=== PATIENT | female | born 1945 | race Caucasian/White ===

== ENCOUNTER 2018-01-14 10:19 | Observation (INO) ==
[2018-01-14] MEDS ORDERED: Sod Chloride 0.9% Inj 1,000 ML IV.CONT SCH (10:30)
--- NOTE | 2018-01-14 10:30 | ED ---
HPI General Chief complaint: Stroke Alert Stated complaint: Medical Time Seen by Provider: 01/14/18 10:25 Source: patient Mode of arrival: EMS Limitations: no limitations History of Present Illness HPI Narrative: h/o chronic afib, on coumadin, and per patient adn family her symptoms of left sided weakness with onset around 915am.... Patient was trying to get out of bed which time she almost fell down because her left lower extremity was so weak. She called for help and had her family come to the bedside. Patient is visiting from [place]. Onset (ago): hour(s) (1) Duration: improved Location: LUE and LLE Migration: none Severity: mild Relieving factors: none Exacerbating factors: none Associated symptoms: denies other symptoms Related Data Home Medications Medication Instructions Recorded Confirmed biotin DAILY 01/14/18 cyanocobalamin-cobamamide [B12] SUBLINGUAL DAILY 01/14/18 iron 2 mg/kg PO DAILY 01/14/18 01/14/18 levothyroxine 50 mcg PO DAILY 01/14/18 01/14/18 [id number] acid-lutein [Centrum PO BID 01/14/18 Silver] pantoprazole [Protonix] 40 mg PO DAILY 01/14/18 01/14/18 pravastatin 40 mg PO DAILY 01/14/18 01/14/18 Previous Rx's Medication Instructions Recorded amlodipine [Norvasc] 10 mg PO DAILY #30 tab 01/15/18 carvedilol [Coreg] 3.125 mg PO BID #60 tab 01/15/18 dabigatran etexilate [Pradaxa] 150 mg PO BID #60 cap 01/15/18 Allergies Allergy/AdvReac Type Severity Reaction Status Date / Time Penicillins Allergy Abdominal Verified 01/14/18 10:24 Pain Review of Systems ROS: all other systems reviewed are negative PMFSH History History Provided By: Patient Social History Social History Substance History: No History of Abuse Second Hand Smoke Exposure: Yes (Exposure as a child and during previous marriage.) Smoking Status: Never smoker Tobacco Type: Cigarettes How Often Do You Have a Drink Containing Alcohol: Never Recent Travel in [facility] within the Last 8 Weeks: No Recent Out of Country Travel within the Last 8 Weeks: No Exam Narrative Exam Narrative: GENERAL: Well-nourished, well-developed patient in no apparent distress. SKIN: Warm and dry. HEAD: Atraumatic. Normocephalic. EYES: Pupils equal and round. No scleral icterus. No injection or drainage. ENT: No nasal bleeding or discharge. Mucous membranes pink and moist. NECK: Trachea midline. No JVD. CARDIOVASCULAR: Regular rate and rhythm. no rubs or gallops RESPIRATORY: No accessory muscle use. Clear to auscultation. Breath sounds equal bilaterally. GASTROINTESTINAL: Abdomen soft, non-tender, nondistended. No rebound or guarding MUSCULOSKELETAL: Extremities without clubbing, cyanosis, or edema. No obvious deformities. NEUROLOGICAL: Awake and alert. No obvious cranial nerve deficits. Motor grossly within normal limits except for lle drift 4/5 initially (now resolved) ... all other (RUE/LUE/RLE/) extremities 5/5 Normal speech. PSYCHIATRIC: Appropriate mood and affect; insight and judgment normal. Course Initial Documented Vital Signs Temperature 98.7 F 01/14/18 10:25 Pulse Rate 43 L 01/14/18 10:25 Respiratory Rate 18 01/14/18 10:25 Blood Pressure 123/79 01/14/18 10:25 Pulse Oximetry 98 01/14/18 10:25 Last Documented Vital Signs Temperature 98.1 F 01/15/18 14:34 Pulse Rate 79 01/15/18 15:00 Respiratory Rate 17 01/15/18 14:34 Blood Pressure 146/108 H 01/15/18 14:34 Pulse Oximetry 97 01/15/18 08:00 Critical Care Time Critical Care Time: Yes Total Critical Care Time: 30 Attestation: Aggregate critical care time was 30 minutes. Time to perform other separately billable procedures was not included in the critical care time. My time did not include minutes spent treating any other patients simultaneously or on activities that did not directly contribute to the patient's treatment. The services I provided to this patient were to treat and/or prevent clinically significant deterioration. I provided critical care services requiring my management, as noted below: Chart data review, documentation time, medication orders and management, vital sign assessments/reviewing monitor data, ordering and reviewing lab tests, ordering and interpreting/reviewing x-rays and diagnostic studies, care of the patient and discussion of the patient with the admitting physicians. Medical Decision Making MDM Narrative Medical decision making narrative: Case discussed with Dr. Kim, who agreed with my decision not to provide any TPA secondary to quickly resolving symptoms as well as patient being anticoagulated on Coumadin No leukocytosis, no anemia, normal platelet count and no left shift INR is therapeutic at 2.2 Elect lites are all within normal limits with the exception of PSA glucose of 161 Troponin elevated at 0.21 findings d/w admitting physician Medical Screen Exam Complete: Yes Emergency Medical Condition: Yes Differential Diagnosis Differential Diagnosis: cva Medical Records Medical records reviewed: Yes I reviewed the patient's medical records. Lab Data Lab results reviewed: Yes I reviewed the patient's lab results. Result diagrams: 01/15/18 04:01 01/15/18 04:01 Lab Results 01/14/18 01/14/18 01/14/18 Range/Units 10:20 10:20 10:20 WBC 5.3 (4.0-11.0) th/mm3 RBC 4.73 (4.00-5.30) mil/mm3 Hgb 14.9 (11.6-15.3) gm/dL POC Hgb (Calc) (11.6-15.3) g/dL Hct 44.5 (35.0-46.0) % POC Hct (35-46.0) % MCV 94.1 (80.0-100.0) fL MCH 31.5 (27.0-34.0) pg MCHC 33.4 (32.0-36.0) % RDW 13.4 (11.6-17.2) % Plt Count 211 (150-450) th/mm3 MPV 8.3 (7.0-11.0) fL Neut % (Auto) 69.3 (16.0-70.0) % Lymph % (Auto) 21.6 (9.0-44.0) % Coffee % (Auto) 6.9 (0.0-8.0) % Eos % (Auto) 1.7 (0.0-4.0) % Baso % (Auto) 0.5 (0.0-2.0) % Neut # (Auto) 3.6 (1.8-7.7) th/mm3 Lymph # (Auto) 1.1 (1.0-4.8) th/mm3 Coffee # (Auto) 0.4 (0.0-0.9) th/mm3 Eos # (Auto) 0.1 (0.0-0.4) th/mm3 Baso # (Auto) 0.0 (0.0-0.2) th/mm3 WBC Differential . Differential Comment Auto diff final ESR (0-30) mm/hr PT 22.1 H (9.8-11.6) sec INR 2.2 Ratio APTT 39.4 H (24.3-30.1) sec POC Sodium (137-144) mmol/L Sodium 143 (136-145) meq/L POC Potassium (3.6-5.0) mmol/L Potassium 3.5 (3.5-5.1) meq/L POC Chloride (102-111) mmol/L Chloride 111 H (98-107) meq/L Carbon Dioxide 23.8 (21.0-32.0) meq/L Anion Gap 8 (5-15) meq/L POC BUN (5-21) mg/dL BUN 23 H (7-18) mg/dL Creatinine 0.85 (0.50-1.00) mg/dL POC Creatinine (0.6-1.3) mg/dL Estimated GFR 65 L (>89) mL/min POC Glucose (68-110) mg/dL Random Glucose 159 H (74-106) mg/dL Hemoglobin A1c (4.3-6.0) % Calcium 8.7 (8.5-10.1) mg/dL Total Bilirubin 1.0 (0.2-1.0) mg/dL AST 41 H (15-37) U/L ALT 30 (10-53) U/L Alkaline Phosphatase 106 (45-117) U/L Total Creatine Kinase 72 (26-192) U/L Troponin I 0.21 H (0.02-0.05) ng/mL Total Protein 7.0 (6.4-8.2) g/dL Albumin 3.3 L (3.4-5.0) g/dL Triglycerides (42-150) mg/dL Cholesterol (120-200) mg/dL LDL Cholesterol, Calc (0-99) mg/dL HDL Cholesterol (40.0-60.0) mg/dL Cholesterol/HDL Ratio Ratio Vitamin B12 (193-986) pg/mL TSH (0.358-3.740) uIU/mL Blood Type Blood Type Recheck Antibody Screen 01/14/18 01/14/18 01/14/18 Range/Units 10:20 11:17 16:38 WBC (4.0-11.0) th/mm3 RBC (4.00-5.30) mil/mm3 Hgb (11.6-15.3) gm/dL POC Hgb (Calc) 14.6 (11.6-15.3) g/dL Hct (35.0-46.0) % POC Hct 43.0 (35-46.0) % MCV (80.0-100.0) fL MCH (27.0-34.0) pg MCHC (32.0-36.0) % RDW (11.6-17.2) % Plt Count (150-450) th/mm3 MPV (7.0-11.0) fL Neut % (Auto) (16.0-70.0) % Lymph % (Auto) (9.0-44.0) % Coffee % (Auto) (0.0-8.0) % Eos % (Auto) (0.0-4.0) % Baso % (Auto) (0.0-2.0) % Neut # (Auto) (1.8-7.7) th/mm3 Lymph # (Auto) (1.0-4.8) th/mm3 Coffee # (Auto) (0.0-0.9) th/mm3 Eos # (Auto) (0.0-0.4) th/mm3 Baso # (Auto) (0.0-0.2) th/mm3 WBC Differential Differential Comment ESR (0-30) mm/hr PT (9.8-11.6) sec INR Ratio APTT (24.3-30.1) sec POC Sodium 143 (137-144) mmol/L Sodium (136-145) meq/L POC Potassium 3.2 L (3.6-5.0) mmol/L Potassium (3.5-5.1) meq/L POC Chloride 109 (102-111) mmol/L Chloride (98-107) meq/L Carbon Dioxide (21.0-32.0) meq/L Anion Gap (5-15) meq/L POC BUN 24 H (5-21) mg/dL BUN (7-18) mg/dL Creatinine (0.50-1.00) mg/dL POC Creatinine 0.6 (0.6-1.3) mg/dL Estimated GFR (>89) mL/min POC Glucose 161 H (68-110) mg/dL Random Glucose (74-106) mg/dL Hemoglobin A1c (4.3-6.0) % Calcium (8.5-10.1) mg/dL Total Bilirubin (0.2-1.0) mg/dL AST (15-37) U/L ALT (10-53) U/L Alkaline Phosphatase (45-117) U/L Total Creatine Kinase (26-192) U/L Troponin I 0.09 H D (0.02-0.05) ng/mL Total Protein (6.4-8.2) g/dL Albumin (3.4-5.0) g/dL Triglycerides (42-150) mg/dL Cholesterol (120-200) mg/dL LDL Cholesterol, Calc (0-99) mg/dL HDL Cholesterol (40.0-60.0) mg/dL Cholesterol/HDL Ratio Ratio Vitamin B12 (193-986) pg/mL TSH (0.358-3.740) uIU/mL Blood Type O Positive Blood Type Recheck Required Antibody Screen Negative 01/14/18 01/14/18 01/14/18 Range/Units 17:23 18:30 18:30 WBC (4.0-11.0) th/mm3 RBC (4.00-5.30) mil/mm3 Hgb (11.6-15.3) gm/dL POC Hgb (Calc) (11.6-15.3) g/dL Hct (35.0-46.0) % POC Hct (35-46.0) % MCV (80.0-100.0) fL MCH (27.0-34.0) pg MCHC (32.0-36.0) % RDW (11.6-17.2) % Plt Count (150-450) th/mm3 MPV (7.0-11.0) fL Neut % (Auto) (16.0-70.0) % Lymph % (Auto) (9.0-44.0) % Coffee % (Auto) (0.0-8.0) % Eos % (Auto) (0.0-4.0) % Baso % (Auto) (0.0-2.0) % Neut # (Auto) (1.8-7.7) th/mm3 Lymph # (Auto) (1.0-4.8) th/mm3 Coffee # (Auto) (0.0-0.9) th/mm3 Eos # (Auto) (0.0-0.4) th/mm3 Baso # (Auto) (0.0-0.2) th/mm3 WBC Differential Differential Comment ESR 5 (0-30) mm/hr PT (9.8-11.6) sec INR Ratio APTT (24.3-30.1) sec POC Sodium (137-144) mmol/L Sodium (136-145) meq/L POC Potassium (3.6-5.0) mmol/L Potassium (3.5-5.1) meq/L POC Chloride (102-111) mmol/L Chloride (98-107) meq/L Carbon Dioxide (21.0-32.0) meq/L Anion Gap (5-15) meq/L POC BUN (5-21) mg/dL BUN (7-18) mg/dL Creatinine (0.50-1.00) mg/dL POC Creatinine (0.6-1.3) mg/dL Estimated GFR (>89) mL/min POC Glucose 91 (68-110) mg/dL Random Glucose (74-106) mg/dL Hemoglobin A1c (4.3-6.0) % Calcium (8.5-10.1) mg/dL Total Bilirubin (0.2-1.0) mg/dL AST (15-37) U/L ALT (10-53) U/L Alkaline Phosphatase (45-117) U/L Total Creatine Kinase (26-192) U/L Troponin I 0.08 H (0.02-0.05) ng/mL Total Protein (6.4-8.2) g/dL Albumin (3.4-5.0) g/dL Triglycerides 86 (42-150) mg/dL Cholesterol 126 (120-200) mg/dL LDL Cholesterol, Calc 52 (0-99) mg/dL HDL Cholesterol 56.4 (40.0-60.0) mg/dL Cholesterol/HDL Ratio 2.23 Ratio Vitamin B12 1565 H (193-986) pg/mL TSH (0.358-3.740) uIU/mL Blood Type Blood Type Recheck Antibody Screen 01/14/18 01/15/18 01/15/18 Range/Units 23:24 04:01 04:01 WBC 6.5 (4.0-11.0) th/mm3 RBC 4.94 (4.00-5.30) mil/mm3 Hgb 15.4 H (11.6-15.3) gm/dL POC Hgb (Calc) (11.6-15.3) g/dL Hct 45.3 (35.0-46.0) % POC Hct (35-46.0) % MCV 91.6 (80.0-100.0) fL MCH 31.2 (27.0-34.0) pg MCHC 34.1 (32.0-36.0) % RDW 13.3 (11.6-17.2) % Plt Count 211 (150-450) th/mm3 MPV 8.3 (7.0-11.0) fL Neut % (Auto) 67.2 (16.0-70.0) % Lymph % (Auto) 23.9 (9.0-44.0) % Coffee % (Auto) 7.3 (0.0-8.0) % Eos % (Auto) 1.2 (0.0-4.0) % Baso % (Auto) 0.4 (0.0-2.0) % Neut # (Auto) 4.4 (1.8-7.7) th/mm3 Lymph # (Auto) 1.5 (1.0-4.8) th/mm3 Coffee # (Auto) 0.5 (0.0-0.9) th/mm3 Eos # (Auto) 0.1 (0.0-0.4) th/mm3 Baso # (Auto) 0.0 (0.0-0.2) th/mm3 WBC Differential . Differential Comment Auto diff final ESR (0-30) mm/hr PT (9.8-11.6) sec INR Ratio APTT (24.3-30.1) sec POC Sodium (137-144) mmol/L Sodium 146 H (136-145) meq/L POC Potassium (3.6-5.0) mmol/L Potassium 3.0 L (3.5-5.1) meq/L POC Chloride (102-111) mmol/L Chloride 113 H (98-107) meq/L Carbon Dioxide 24.0 (21.0-32.0) meq/L Anion Gap 9 (5-15) meq/L POC BUN (5-21) mg/dL BUN 15 (7-18) mg/dL Creatinine 0.57 (0.50-1.00) mg/dL POC Creatinine (0.6-1.3) mg/dL Estimated GFR Greater than 89 (>89) mL/min POC Glucose 87 (68-110) mg/dL Random Glucose 92 (74-106) mg/dL Hemoglobin A1c (4.3-6.0) % Calcium 8.7 (8.5-10.1) mg/dL Total Bilirubin (0.2-1.0) mg/dL AST (15-37) U/L ALT (10-53) U/L Alkaline Phosphatase (45-117) U/L Total Creatine Kinase (26-192) U/L Troponin I (0.02-0.05) ng/mL Total Protein (6.4-8.2) g/dL Albumin (3.4-5.0) g/dL Triglycerides (42-150) mg/dL Cholesterol (120-200) mg/dL LDL Cholesterol, Calc (0-99) mg/dL HDL Cholesterol (40.0-60.0) mg/dL Cholesterol/HDL Ratio Ratio Vitamin B12 (193-986) pg/mL TSH (0.358-3.740) uIU/mL Blood Type Blood Type Recheck Antibody Screen 01/15/18 01/15/18 01/15/18 Range/Units 04:01 08:42 09:44 WBC (4.0-11.0) th/mm3 RBC (4.00-5.30) mil/mm3 Hgb (11.6-15.3) gm/dL POC Hgb (Calc) (11.6-15.3) g/dL Hct (35.0-46.0) % POC Hct (35-46.0) % MCV (80.0-100.0) fL MCH (27.0-34.0) pg MCHC (32.0-36.0) % RDW (11.6-17.2) % Plt Count (150-450) th/mm3 MPV (7.0-11.0) fL Neut % (Auto) (16.0-70.0) % Lymph % (Auto) (9.0-44.0) % Coffee % (Auto) (0.0-8.0) % Eos % (Auto) (0.0-4.0) % Baso % (Auto) (0.0-2.0) % Neut # (Auto) (1.8-7.7) th/mm3 Lymph # (Auto) (1.0-4.8) th/mm3 Coffee # (Auto) (0.0-0.9) th/mm3 Eos # (Auto) (0.0-0.4) th/mm3 Baso # (Auto) (0.0-0.2) th/mm3 WBC Differential Differential Comment ESR (0-30) mm/hr PT (9.8-11.6) sec INR Ratio APTT (24.3-30.1) sec POC Sodium (137-144) mmol/L Sodium (136-145) meq/L POC Potassium (3.6-5.0) mmol/L Potassium (3.5-5.1) meq/L POC Chloride (102-111) mmol/L Chloride (98-107) meq/L Carbon Dioxide (21.0-32.0) meq/L Anion Gap (5-15) meq/L POC BUN (5-21) mg/dL BUN (7-18) mg/dL Creatinine (0.50-1.00) mg/dL POC Creatinine (0.6-1.3) mg/dL Estimated GFR (>89) mL/min POC Glucose 180 H (68-110) mg/dL Random Glucose (74-106) mg/dL Hemoglobin A1c 5.4 (4.3-6.0) % Calcium (8.5-10.1) mg/dL Total Bilirubin (0.2-1.0) mg/dL AST (15-37) U/L ALT (10-53) U/L Alkaline Phosphatase (45-117) U/L Total Creatine Kinase (26-192) U/L Troponin I (0.02-0.05) ng/mL Total Protein (6.4-8.2) g/dL Albumin (3.4-5.0) g/dL Triglycerides (42-150) mg/dL Cholesterol (120-200) mg/dL LDL Cholesterol, Calc (0-99) mg/dL HDL Cholesterol (40.0-60.0) mg/dL Cholesterol/HDL Ratio Ratio Vitamin B12 (193-986) pg/mL TSH 0.390 (0.358-3.740) uIU/mL Blood Type Blood Type Recheck Antibody Screen 01/15/18 Range/Units 09:44 WBC (4.0-11.0) th/mm3 RBC (4.00-5.30) mil/mm3 Hgb (11.6-15.3) gm/dL POC Hgb (Calc) (11.6-15.3) g/dL Hct (35.0-46.0) % POC Hct (35-46.0) % MCV (80.0-100.0) fL MCH (27.0-34.0) pg MCHC (32.0-36.0) % RDW (11.6-17.2) % Plt Count (150-450) th/mm3 MPV (7.0-11.0) fL Neut % (Auto) (16.0-70.0) % Lymph % (Auto) (9.0-44.0) % Coffee % (Auto) (0.0-8.0) % Eos % (Auto) (0.0-4.0) % Baso % (Auto) (0.0-2.0) % Neut # (Auto) (1.8-7.7) th/mm3 Lymph # (Auto) (1.0-4.8) th/mm3 Coffee # (Auto) (0.0-0.9) th/mm3 Eos # (Auto) (0.0-0.4) th/mm3 Baso # (Auto) (0.0-0.2) th/mm3 WBC Differential Differential Comment ESR (0-30) mm/hr PT 28.4 H (9.8-11.6) sec INR 2.8 Ratio APTT (24.3-30.1) sec POC Sodium (137-144) mmol/L Sodium (136-145) meq/L POC Potassium (3.6-5.0) mmol/L Potassium (3.5-5.1) meq/L POC Chloride (102-111) mmol/L Chloride (98-107) meq/L Carbon Dioxide (21.0-32.0) meq/L Anion Gap (5-15) meq/L POC BUN (5-21) mg/dL BUN (7-18) mg/dL Creatinine (0.50-1.00) mg/dL POC Creatinine (0.6-1.3) mg/dL Estimated GFR (>89) mL/min POC Glucose (68-110) mg/dL Random Glucose (74-106) mg/dL Hemoglobin A1c (4.3-6.0) % Calcium (8.5-10.1) mg/dL Total Bilirubin (0.2-1.0) mg/dL AST (15-37) U/L ALT (10-53) U/L Alkaline Phosphatase (45-117) U/L Total Creatine Kinase (26-192) U/L Troponin I (0.02-0.05) ng/mL Total Protein (6.4-8.2) g/dL Albumin (3.4-5.0) g/dL Triglycerides (42-150) mg/dL Cholesterol (120-200) mg/dL LDL Cholesterol, Calc (0-99) mg/dL HDL Cholesterol (40.0-60.0) mg/dL Cholesterol/HDL Ratio Ratio Vitamin B12 (193-986) pg/mL TSH (0.358-3.740) uIU/mL Blood Type Blood Type Recheck Antibody Screen Imaging Data Radiologist's impression: Carotid Doppler Study 01/14/18 00:00 CONCLUSION: 1. Right Internal Carotid Artery: Findings indicate <50% stenosis. 2. Left Internal Carotid Artery: Findings indicate <50% stenosis. Chest X-Ray 01/14/18 10:25 CONCLUSION: No acute cardiopulmonary disease. Head CT 01/14/18 10:25 CONCLUSION: 1. No acute intracranial findings. 2. Question right supraclinoid ICA aneurysm. CTA brain recommended which has been ordered Report was called by [Silas to Dr. Vera] at 1035 Head MRI 01/15/18 00:00 CONCLUSION: 1. Small foci of acute infarction at the posterior superior left parietal lobe. 2. Increased signal in the periventricular white matter likely from small vessel stomach change. 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 Periodic imaging follow-up suggested to document stability with repeat MRA in 6 months initially suggested Discharge Plan Discharge Disposition Patient Disposition: 30 Still Patient Discharge Condition Condition: Stable Discharge Order Discharge Orders: Discharge Order (Routine); Ordered 01/15/18 Ordered By: Fadi Garcia Cardiology Clear for Discharge (Routine); Ordered 01/15/18 Ordered By: Erick Mathews Discharge Details Diagnosis: Transient cerebral ischemia, Non-ST elevated myocardial infarction (non-STEMI) Physicians Team ED Provider: Alexander Vera Primary Care Provider: UNKNOWN, Attending Provider: Clifford Pierre Other Providers: Ben Kim Vincent G Status ED Status: Left Department Discharge Information Discharge Date/Time: 01/14/18 15:24
--- NOTE | 2018-01-14 10:39 | CT ---
EXAM DATE: 01/14/2018 10:32 AM EDT AGE/SEX: 72 years / Female INDICATIONS: Stroke alert. Left sided weakness. CLINICAL DATA: This is the patient's initial encounter. Patient reports that signs and symptoms have been present for 1 day and indicates a pain score of 0/10. MEDICAL/SURGICAL HISTORY: . Unable to obtain. . Unable to obtain. RADIATION DOSE: 31.25 CTDI (mGy) COMPARISON: No prior exams available for comparison. TECHNIQUE: CT of the head without contrast. Using automated exposure control and adjustment of the mA and/or kV according to patient size, radiation dose was kept as low as reasonably achievable to ob tain optimal diagnostic quality images. DICOM format image data is available electronically for revi ew and comparison. FINDINGS: There is dense calcification of and possibly dilatation of the skull base vessels on the right in the supraclinoid region. Please refer to report of CTA head for additional details. There is no evidence of intracranial hemorrhage or mass. There is nothing to specifically indicate ac [place] infarction. Ventricles are symmetric and normal. The extracranial structures are benign and intac t. CONCLUSION: 1. No acute intracranial findings. 2. Question right supraclinoid ICA aneurysm. CTA brain recommended which has been ordered Report was called by [Silas to Dr. Vera] at 1035 Electronically signed by: Dalton Rosen MD 01/14/2018 10:38 AM EDT
[2018-01-14 10:44] LABS: Baso % (Auto) 0.5 % (0.0-2.0); Eos # (Auto) 0.1 th/mm3 (0.0-0.4); Eos % (Auto) 1.7 % (0.0-4.0); Hematocrit 44.5 % (35.0-46.0); Hemoglobin 14.9 gm/dL (11.6-15.3); Lymph # (Auto) 1.1 th/mm3 (1.0-4.8); Lymph % (Auto) 21.6 % (9.0-44.0); Mean Corpuscular HGB Conc 33.4 % (32.0-36.0); Mean Corpuscular Hemoglobin 31.5 pg (27.0-34.0); Mean Corpuscular Volume 94.1 fL (80.0-100.0); Mean Platelet Volume 8.3 fL (7.0-11.0); Mono # (Auto) 0.4 th/mm3 (0.0-0.9); Mono % (Auto) 6.9 % (0.0-8.0); Neut # (Auto) 3.6 th/mm3 (1.8-7.7); Neut % (Auto) 69.3 % (16.0-70.0); Platelet Count 211 th/mm3 (150-450); Red Blood Count 4.73 mil/mm3 (4.00-5.30); Red Cell Distribution Width 13.4 % (11.6-17.2); White Blood Count 5.3 th/mm3 (4.0-11.0)
[2018-01-14 10:53] LABS: Activated Partial Thrombo Time 39.4 sec (24.3-30.1); INR 2.2 Ratio; Prothrombin Time 22.1 sec (9.8-11.6)
[2018-01-14 11:06] LABS: Alanine Aminotransferase 30 U/L (10-53); Albumin 3.3 g/dL (3.4-5.0); Alkaline Phosphatase 106 U/L (45-117); Anion Gap 8 meq/L (5-15); Blood Urea Nitrogen 23 mg/dL (7-18); Calcium 8.7 mg/dL (8.5-10.1); Carbon Dioxide 23.8 meq/L (21.0-32.0); Chloride 111 meq/L (98-107); Glomerular Filtration Rate 65 mL/min (>89); Glucose,Random 159 mg/dL (74-106); Sodium 143 meq/L (136-145); Troponin I 0.21 ng/mL (0.02-0.05)
[2018-01-14 11:07] LABS: Aspartate Aminotransferase 41 U/L (15-37); Creatine Kinase 72 U/L (26-192); Potassium 3.5 meq/L (3.5-5.1)
--- NOTE | 2018-01-14 11:08 | XR ---
EXAM DATE: 01/14/2018 11:06 AM EDT AGE/SEX: 72 years / Female INDICATIONS: Stroke Alert. CLINICAL DATA: This is the patient's initial encounter. Patient reports that signs and symptoms have been present for 1 day and indicates a pain score of 0/10. MEDICAL/SURGICAL HISTORY: Non-responsive. None. COMPARISON: No prior exams available for comparison. FINDINGS: The lungs are clear without infiltrate, nodule, or mass. There is no appreciable pleural effusion for technique. Heart and mediastinum are unremarkable. CONCLUSION: No acute cardiopulmonary disease. Electronically signed by: Maritza Scott MD 01/14/2018 11:07 AM EDT
[2018-01-14] MEDS ORDERED: Dextrose 50% in Water 50 ML Vial IV.PUSH PRN (12:48)
[2018-01-14] MEDS ORDERED: Aspirin 325 MG Tablet PO SCH (13:00)
--- NOTE | 2018-01-14 14:39 | US ---
EXAM DATE: 01/14/2018 1:52 PM EDT AGE/SEX: 72 years / Female INDICATIONS: Transient ischemic attack. CLINICAL DATA: This is the patient's initial encounter. Patient reports that signs and symptoms have been present for 1 day and indicates a pain score of 0/10. MEDICAL/SURGICAL HISTORY: Hypertension. Atrial fibrillation. Carpal tunnel syndrome. Gastric b ypass. Bilateral knee replacement. COMPARISON: No prior exams available for comparison. VELOCITY PARAMETERS: ICA/CCA Ratio: Right 1.8 , Left 1.0 ICA: Right 78.9 cm/sec, Left 59.2 cm/sec CCA: Right 44.2 cm/sec, Left 60.3 cm/sec ECA: Right 50.8 cm/sec, Left 48.2 cm/sec Vertebral: Right 41.8 cm/sec antegrade, Left 38.4 cm/sec antegrade FINDINGS: Right Carotid: There is mild atherosclerotic plaque within the common carotid artery and moderate ca lcified and noncalcified plaque in the right bulb.The waveforms are within normal limits. Left Carotid: There is mild atherosclerotic disease in the common carotid artery and moderate calcif ied plaque in the carotid bulb. The waveforms are within normal limits. Other: None. CONCLUSION: 1. Right Internal Carotid Artery: Findings indicate <50% stenosis. 2. Left Internal Carotid Artery: Findings indicate <50% stenosis. Electronically signed by: Dalton Schroeder MD 01/14/2018 2:38 PM EDT
--- NOTE | 2018-01-14 16:02 | P.CONNEU ---
History of Present Illness Service: Neurology Primary Care Provider: UNKNOWN Chief Complaint: TIA History of Present Illness: 72-year-old female admitted for possible TIA. She is here visiting from [place] is on Coumadin. After eating breakfast this morning she stood up felt somewhat weak her daughter noticed her to look somewhat disoriented with speaking to her with the patient would not speak much back and states she had to hold her because she felt that she was getting go down. Daughter states that EVAC found her they felt that she had a left pronator drift. Her symptoms have resolved. Denies any previous history of TIA or stroke. Feels well at present denies any head or neck trauma. CT brain scan did not show any acute lesion. Noted be quite hypertensive in the ER systolic greater than 180s. Review of Systems All other systems reviewed negative except as [facility] - History History Provided By: Patient - Medical History Medical History: Medical History (Last Reviewed 01/14/18 @ 15:43 by Isabel Gayle) Hypertension (Acute) Afib (Acute) - Surgical History Surgical History: Surgical History (Last Reviewed 01/14/18 @ 15:43 by Isabel Gayle) H/O gastric bypass History of bilateral knee replacement History of carpal tunnel release of both wrists - Family History Family History: Family History (Last Updated 01/14/18 @ 12:36 by Karol Lynn MD, R1) Other Heart disease Melanoma - Tobacco History Second Hand Smoke Exposure: No Tobacco Use In Past 30 Days: No Smoking Status: Never smoker Tobacco Type: Cigarettes - Alcohol History How Often Do You Have a Drink Containing Alcohol: Never - Substance Use History Substance History: No History of Abuse - Travel History Recent Travel in the [place] Within the Last 8 Weeks: No Recent Travel Out of the Country Within the Last 8 Weeks: No - Immunization History Tetanus Immunization: <5 Years Hx Influenza Vaccine This Season: No Medications and Allergies Active Medications: Active Medications Aspirin (Aspirin) 325 mg PO DAILY CHELSIE Dextrose (D50w Vial) 50 ml IV.PUSH UNSCH PRN PRN Reason: per Hypoglycemic Protocol Enalaprilat (Vasotec Inj) 1.25 mg IV.PUSH Q6H PRN PRN Reason: SEE LABEL COMMENTS Glucagon (Glucagon Inj) 1 mg OTHER UNSCH PRN PRN Reason: per Hypoglycemic Protocol Sodium Chloride (Ns Inj) 1,000 mls @ 70 mls/hr IV.CONT .[id number] CHELSIE Stop: 01/15/18 00:47 Last Admin: 01/14/18 10:56 Dose: 70 mls/hr Sodium Chloride (Ns Inj) 1,000 mls @ 70 mls/hr IV.CONT .[id number] [facility] Sodium Chloride (Ns Flush) 2 ml IV.FLUSH PRN PRN PRN Reason: FLUSH AFTER USING IV ACCESS Allergies Allergy/AdvReac Type Severity Reaction Status Date / Time Penicillins Allergy Abdominal Verified 01/14/18 10:24 Pain Home Medications Medication Instructions Recorded Confirmed Type biotin 01/14/18 History carvedilol 12.5 mg PO BID 01/14/18 01/14/18 History cyanocobalamin-cobamamide [B12] 01/14/18 History iron 2 mg/kg PO DAILY 01/14/18 01/14/18 History levothyroxine 50 mcg PO DAILY 01/14/18 01/14/18 History uo-[id number] acid-lutein [Centrum 01/14/18 History Silver] pantoprazole [Protonix] 40 mg PO DAILY 01/14/18 01/14/18 History pravastatin 40 mg PO DAILY 01/14/18 01/14/18 History warfarin 5 mg PO DAILY 01/14/18 01/14/18 History Exam Vital signs: Vital Signs 01/14/18 10:25 01/14/18 10:38 01/14/18 10:39 Temperature 98.7 F Pulse Rate 43 L Respiratory Rate 18 Blood Pressure 123/79 Pulse Oximetry 98 100 100 01/14/18 10:58 01/14/18 13:00 01/14/18 13:04 Temperature 98.6 F 98.6 F Pulse Rate 69 68 Respiratory Rate 18 18 Blood Pressure 180/89 H 202/104 H Pulse Oximetry 96 100 Intake & Output 01/13/18 01/14/18 01/14/18 18:59 06:59 18:59 Weight 71.8 kg Narrative: Pleasant 72-year-old female awake alert oriented 3 no aphasia able to repeat name, follow midline motor crossing request. Visual rahman full no facial asymmetry tongue midline no pronator drift. Reduce pinprick stocking distribution right greater than left. Right foot hammertoe formation, secondary fall risk plantarflexion no clonus elicited gait not assessed secondary potential fall risk - Constitutional no acute distress - Routine HEENT Exam Head: Present: normocephalic Eye: Present: EOMI Results - Labs CBC & Chem 7: 01/14/18 10:20 01/14/18 10:20 Labs: Laboratory Results - last 24 hr 01/14/18 01/14/18 01/14/18 10:20 10:20 10:20 WBC 5.3 RBC 4.73 Hgb 14.9 POC Hgb (Calc) Hct 44.5 POC Hct MCV 94.1 MCH 31.5 MCHC 33.4 RDW 13.4 Plt Count 211 MPV 8.3 Neut % (Auto) 69.3 Lymph % (Auto) 21.6 Dickey % (Auto) 6.9 Eos % (Auto) 1.7 Baso % (Auto) 0.5 Neut # (Auto) 3.6 Lymph # (Auto) 1.1 Dickey # (Auto) 0.4 Eos # (Auto) 0.1 Baso # (Auto) 0.0 WBC Differential . Differential Comment Auto diff final PT 22.1 H INR 2.2 APTT 39.4 H POC Sodium Sodium 143 POC Potassium Potassium 3.5 POC Chloride Chloride 111 H Carbon Dioxide 23.8 Anion Gap 8 POC BUN BUN 23 H Creatinine 0.85 POC Creatinine Estimated GFR 65 L POC Glucose Random Glucose 159 H Calcium 8.7 Total Bilirubin 1.0 AST 41 H ALT 30 Alkaline Phosphatase 106 Total Creatine Kinase 72 Troponin I 0.21 H Total Protein 7.0 Albumin 3.3 L Blood Type Blood Type Recheck Antibody Screen 01/14/18 01/14/18 10:20 11:17 WBC RBC Hgb POC Hgb (Calc) 14.6 Hct POC Hct 43.0 MCV MCH MCHC RDW Plt Count MPV Neut % (Auto) Lymph % (Auto) Dickey % (Auto) Eos % (Auto) Baso % (Auto) Neut # (Auto) Lymph # (Auto) Dickey # (Auto) Eos # (Auto) Baso # (Auto) WBC Differential Differential Comment PT INR APTT POC Sodium 143 Sodium POC Potassium 3.2 L Potassium POC Chloride 109 Chloride Carbon Dioxide Anion Gap POC BUN 24 H BUN Creatinine POC Creatinine 0.6 Estimated GFR POC Glucose 161 H Random Glucose Calcium Total Bilirubin AST ALT Alkaline Phosphatase Total Creatine Kinase Troponin I Total Protein Albumin Blood Type O Positive Blood Type Recheck Required Antibody Screen Negative - Imaging Impressions Carotid Doppler Study 01/14/18 00:00 CONCLUSION: 1. Right Internal Carotid Artery: Findings indicate <50% stenosis. 2. Left Internal Carotid Artery: Findings indicate <50% stenosis. Chest X-Ray 01/14/18 10:25 CONCLUSION: No acute cardiopulmonary disease. Head CT 01/14/18 10:25 CONCLUSION: 1. No acute intracranial findings. 2. Question right supraclinoid ICA aneurysm. CTA brain recommended which has been ordered Report was called by [Silas to Dr. Vera] at 1035 Review/Management - Diagnosis (1) Transient cerebral ischemia Code(s): G45.9 - Transient cerebral ischemic attack, unspecified Status: Acute Current Visit: Yes (2) Non-ST elevated myocardial infarction (non-STEMI) Code(s): I21.4 - Non-ST elevation (NSTEMI) myocardial infarction Status: Acute Current Visit: Yes (3) Hypertension Code(s): I10 - Essential (primary) hypertension Status: Acute Current Visit : Yes (4) Afib Code(s): I48.91 - Unspecified atrial fibrillation Status: Acute Current Visit: Yes - Review/Management Plan: Patient doing well at present neuro exam nonfocal with exception of 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 Rule out seizure TIA is a possibility as well that her INR was therapeutic at 2.2 Recommendations EEG Follow-up MRI MRA of the brain Target INR 2.5 Follow fasting lipids PT evaluation (1) Transient cerebral ischemia Qualifiers: Transient cerebral ischemia type: unspecified Qualified Code(s): G45.9 - Transient cerebral ischemic attack, unspecified
[2018-01-14] MEDS ORDERED: Aspirin 325 MG Tablet PO ONE (17:11)
--- NOTE | 2018-01-14 17:13 | P.HPFP ---
History of Present Illness Primary Care Physician: UNKNOWN Chief Complaint: TIA History of Present Illness: 72-year-old female with history of A. fib, hypertension and hypothyroidism presented to the emergency room following an episode of dizziness and weakness. Patient is accompanied by her daughters who assist in providing history. Patient was in her normal state of health and her family were visiting from [place] and on the morning of admission suddenly felt lightheaded/dizzy, and upon trying to stand up felt her left leg gave out. Her daughter was standing nearby who grabbed her to keep her from falling, and the daughter reports that she had a blank/day used look in her eyes and was minimally responsive for the next 5 or so minutes. EMS was called at that time, and on the ride here in the family noted that she was unable to lift her left arm and left leg when instructed to do so. She denies any headache, blurry vision. She states that she is never had anything like this happen before. Patient is on warfarin for her A. fib, and 1 year ago her traffic workforce representative wanted to place a watchman device but was unable to do so due to a thrombus in the left atrial appendage. Denies any history of stroke. - Diagnosis (1) Transient cerebral ischemia (2) Elevated troponin (3) Afib (4) Hypertension (5) Nutrition, metabolism, and development symptoms Review of Systems Constitutional: Denies chills, Denies fever(s) Eyes: Denies blind spots, Denies blurry vision Ears, Nose, Mouth, and Throat: Reports abnormal hearing (Currently has decreased hearing in her left ear.), Denies post nasal drip, Denies sore throat Cardiovascular: Denies chest pain, Denies radiating jaw, neck or arm pain, Denies shortness of breath Respiratory: Denies cough, Denies wheezing Gastrointestinal: Denies abdominal pain, Denies black, tarry stools, Denies bright, red blood in stools, Denies change in bowel habits, Denies nausea, Denies vomiting Genitourinary: Denies blood in urine, Denies urinary urgency Skin/Breast: Denies new lesions, Denies wounds Neurologic: Denies confusion, Denies frequent falls PMFSH - History History Provided By: Patient - Medical History Medical History: Medical History (Last Updated 01/14/18 @ 16:29 by Fadi Garica MD, R2) Hypertension (Acute) Afib (Acute) Hypothyroidism - Surgical History Surgical History: Surgical History (Last Reviewed 01/14/18 @ 16:29 by Fadi Garcia MD, R2) H/O gastric bypass History of bilateral knee replacement History of carpal tunnel release of both wrists - Family History Family History: Family History (Last Reviewed 01/14/18 @ 16:29 by Fadi Garcia MD, R2) Other Heart disease Melanoma - Tobacco History Second Hand Smoke Exposure: No Tobacco Use In Past 30 Days: No Smoking Status: Never smoker Tobacco Type: Cigarettes - Alcohol History How Often Do You Have a Drink Containing Alcohol: Never - Substance Use History Substance History: No History of Abuse - Travel History Recent Travel in the [place] Within the Last 8 Weeks: No Recent Travel Out of the Country Within the Last 8 Weeks: No - Immunization History Tetanus Immunization: <5 Years Hx Influenza Vaccine This Season: No Medications and Allergies Active Medications: Active Medications Aspirin (Aspirin) 325 mg PO DAILY CHELSIE Dextrose (D50w Vial) 50 ml IV.PUSH UNSCH PRN PRN Reason: per Hypoglycemic Protocol Enalaprilat (Vasotec Inj) 1.25 mg IV.PUSH Q6H PRN PRN Reason: SEE LABEL COMMENTS Glucagon (Glucagon Inj) 1 mg OTHER UNSCH PRN PRN Reason: per Hypoglycemic Protocol Sodium Chloride (Ns Inj) 1,000 mls @ 70 mls/hr IV.CONT .[id number] CHELSIE Stop: 01/15/18 00:47 Last Admin: 01/14/18 10:56 Dose: 70 mls/hr Sodium Chloride (Ns Inj) 1,000 mls @ 70 mls/hr IV.CONT .[id number] [facility] Sodium Chloride (Ns Flush) 2 ml IV.FLUSH PRN PRN PRN Reason: FLUSH AFTER USING IV ACCESS Allergies Allergy/AdvReac Type Severity Reaction Status Date / Time Penicillins Allergy Abdominal Verified 01/14/18 10:24 Pain Home Medications Medication Instructions Recorded Confirmed Type biotin 01/14/18 History carvedilol 12.5 mg PO BID 01/14/18 01/14/18 History cyanocobalamin-cobamamide [B12] 01/14/18 History iron 2 mg/kg PO DAILY 01/14/18 01/14/18 History levothyroxine 50 mcg PO DAILY 01/14/18 01/14/18 History lc-uqm-amngq acid-lutein [Centrum 01/14/18 History Silver] pantoprazole [Protonix] 40 mg PO DAILY 01/14/18 01/14/18 History pravastatin 40 mg PO DAILY 01/14/18 01/14/18 History warfarin 5 mg PO DAILY 01/14/18 01/14/18 History Exam Vital signs: Vital Signs 01/14/18 10:25 01/14/18 10:38 01/14/18 10:39 Temperature 98.7 F Pulse Rate 43 L Respiratory Rate 18 Blood Pressure 123/79 Pulse Oximetry 98 100 100 01/14/18 10:58 01/14/18 13:00 01/14/18 13:04 Temperature 98.6 F 98.6 F Pulse Rate 69 68 Respiratory Rate 18 18 Blood Pressure 180/89 H 202/104 H Pulse Oximetry 96 100 Intake & Output 01/13/18 01/14/18 01/14/18 18:59 06:59 18:59 Weight 71.8 kg Narrative: GENERAL: Well-developed well-nourished white female lying in bed with head flat in no acute distress and answering questions appropriately. SKIN: Warm and dry. HEAD: Atraumatic. Normocephalic. EYES: Pupils equal and round. No scleral icterus. No injection or drainage. ENT: No nasal bleeding or discharge. Mucous membranes pink and moist. NECK: Trachea midline. No JVD. CARDIOVASCULAR: Irregular rate and rhythm. No murmurs appreciated RESPIRATORY: No accessory muscle use. Clear to auscultation. Breath sounds equal bilaterally. GASTROINTESTINAL: Abdomen soft, non-tender, nondistended. Hepatic and splenic margins not palpable. MUSCULOSKELETAL: Extremities without clubbing, cyanosis, or edema. No obvious deformities. NEUROLOGICAL: Awake and alert. Cranial nerves II through XII intact. Finger to nose intact, heel to bledsoe intact. Motor grossly within normal limits. Five out of 5 muscle strength in the arms and legs. Sensation intact and equal bilaterally. Normal speech. PSYCHIATRIC: Appropriate mood and affect; insight and judgment normal. Results - Labs Result diagrams: 01/14/18 10:20 01/14/18 10:20 Abnormal lab results 01/14/18 01/14/18 01/14/18 Range/Units 10:20 10:20 10:20 PT 22.1 H (9.8-11.6) sec APTT 39.4 H (24.3-30.1) sec POC Potassium 3.2 L (3.6-5.0) mmol/L Chloride 111 H (98-107) meq/L POC BUN 24 H (5-21) mg/dL BUN 23 H (7-18) mg/dL Estimated GFR 65 L (>89) mL/min POC Glucose 161 H (68-110) mg/dL Random Glucose 159 H (74-106) mg/dL AST 41 H (15-37) U/L Troponin I 0.21 H (0.02-0.05) ng/mL Albumin 3.3 L (3.4-5.0) g/dL Short CBC 01/14/18 Range/Units 10:20 WBC 5.3 (4.0-11.0) th/mm3 Hgb 14.9 (11.6-15.3) gm/dL Hct 44.5 (35.0-46.0) % Plt Count 211 (150-450) th/mm3 BMP 01/14/18 10:20 Sodium 143 Potassium 3.5 Chloride 111 H Carbon Dioxide 23.8 BUN 23 H Creatinine 0.85 Calcium 8.7 Cardiac Enzymes 01/14/18 Range/Units 10:20 Total Creatine Kinase 72 (26-192) U/L Troponin I 0.21 H (0.02-0.05) ng/mL Liver Function 01/14/18 Range/Units 10:20 Total Bilirubin 1.0 (0.2-1.0) mg/dL AST 41 H (15-37) U/L ALT 30 (10-53) U/L Alkaline Phosphatase 106 (45-117) U/L Albumin 3.3 L (3.4-5.0) g/dL - Imaging Impressions Carotid Doppler Study 01/14/18 00:00 CONCLUSION: 1. Right Internal Carotid Artery: Findings indicate <50% stenosis. 2. Left Internal Carotid Artery: Findings indicate <50% stenosis. Chest X-Ray 01/14/18 10:25 CONCLUSION: No acute cardiopulmonary disease. Head CT 01/14/18 10:25 CONCLUSION: 1. No acute intracranial findings. 2. Question right supraclinoid ICA aneurysm. CTA brain recommended which has been ordered Report was called by [Silas to Dr. Vera] at 1035 Caprini VTE Risk Assessment Caprini VTE Risk Assessment: Moderate/High Risk (score >= 2) Caprini Risk Assessment Model: Point Value = 1 Point Value = 2 Point Value = 3 Point Value = 5 Age 41-60 Minor surgery BMI > 25 kg/m2 Swollen legs Varicose veins or History of unexplained or recurrent spontaneous Oral contraceptives or hormone replacement Sepsis (< 1 month) Serious lung disease, including pneumonia (< 1 month) Abnormal pulmonary function Acute myocardial infarction Congestive heart failure (< 1 month) History of inflammatory bowel disease Medical patient at bed rest Age 61-74 Arthroscopic surgery Major open surgery (> 45 min) Laparoscopic surgery (> 45 min) Malignancy Confined to bed (> 72 hours) Immobilizing plaster cast Central venous access Age >= 75 History of VTE Family history of VTE Factor V Leiden Prothrombin [id number] Lupus anticoagulant Anticardiolipin antibodies Elevated serum homocysteine Heparin-induced thrombocytopenia Other congenital or acquired thrombophilia Stroke (< 1 month) Elective arthroplasty Hip, pelvis, or leg fracture Acute spinal cord injury (< 1 month) Prophylaxis Regimen: Total Risk Factor Score Risk Level Prophylaxis Regimen 0-1 Low Early ambulation 2 Moderate Order ONE of the following: *Sequential Compression Device (SCD) *Heparin 5000 units SQ BID 3-4 Higher Order ONE of the following medications: *Heparin 5000 units SQ TID *Enoxaparin/Lovenox 40 mg SQ daily (WT < 150 kg, CrCl > 30 mL/min) *Enoxaparin/Lovenox 30 mg SQ daily (WT < 150 kg, CrCl > 10-29 mL/min) *Enoxaparin/Lovenox 30 mg SQ BID (WT < 150 kg, CrCl > 30 mL/min) AND/OR *Sequential Compression Device (SCD) 5 or more Highest Order ONE of the following medications: *Heparin 5000 units SQ TID (Preferred with Epidurals) *Enoxaparin/Lovenox 40 mg SQ daily (WT < 150 kg, CrCl > 30 mL/min) *Enoxaparin/Lovenox 30 mg SQ daily (WT < 150 kg, CrCl > 10-29 mL/min) *Enoxaparin/Lovenox 30 mg SQ BID (WT < 150 kg, CrCl > 30 mL/min) AND *Sequential Compression Device (SCD) Assessment and Plan - Assessment (1) Transient cerebral ischemia Code(s): G45.9 - Transient cerebral ischemic attack, unspecified Status: Acute Plan: On the day of admission had left-sided weakness that improved to baseline by the time patient was evaluated in the emergency room No history of stroke or TIA Patient does have A. fib with a known clot in the left atrial appendage. On warfarin with an INR of 2.2 CT head on admission showed no acute intracranial findings, did show questionable right supraclinoid ICA aneurysm EKG no ST changes Speech therapy consultedpassed swallow study Gave aspirin 325 mg p.o. once Continuous telemetry Echocardiogram pending CTA, MR brain pending Carotid ultrasound pending Neurology consulted Lipid panel, hemoglobin A1c in a.m. labs PT/OT (2) Elevated troponin Code(s): R74.8 - Abnormal levels of other serum enzymes Status: Acute Plan: Patient noted to have elevated troponin 0.21 on admission EKG with no ST elevations Will trend troponins and EKG for ACS rule out (3) Afib Code(s): I48.91 - Unspecified atrial fibrillation Status: Acute Plan: Known history of A. fib Well-controlled on Coreg 12.5 mg p.o. twice daily On warfarin 5 mg p.o. daily, INR 2.2 on admission On telemetry (4) Hypertension Code(s): I10 - Essential (primary) hypertension Status: Acute Plan: Known history of hypertension, treated only with carvedilol Pressure elevated at 202/104 on admission Ordering Vasotec IV as needed for systolic blood pressure over 180, diastolic blood pressure over 110 (5) Nutrition, metabolism, and development symptoms Code(s): R63.8 - Other symptoms and signs concerning food and fluid intake Status: Acute Plan: Passed swallow study, cardiac diet Normal saline IV fluids at 70 mL/h Replace electrolytes as needed Warfarin 5 mg daily - Assessment and Plan 72-year-old female with history of A. fib, hypertension hypothyroidism presented after a episode of left-sided weakness. Symptoms resolved on admission. Imaging to this point has been negative. Was noted to have elevated troponin of 0.21 on admission. Will admit to observation for TIA workup, ACS rule out. Neurology consulted. Disposition: Likely 1-2 days. Anticipate being discharged home pending PT/OT evaluation (1) Transient cerebral ischemia Qualifiers: Transient cerebral ischemia type: unspecified Qualified Code(s): G45.9 - Transient cerebral ischemic attack, unspecified
[2018-01-14] MEDS: Sod Chloride 0.9% Inj 1,000 ML IV.CONT SCH ×2 (17:26→20:44)
--- NOTE | 2018-01-14 18:47 | P.PNFP ---
Subjective Interval history: Attending note: Very pleasant 72-year-old woman visiting from [place] with daughter present relates episode this morning feeling suddenly lightheaded and dizzy and discovering that her left leg seem to give out of when trying to stand. Initially patient's daughter observed her to have a "blank stare" and although she appeared conscious not responding to conversation. Episode lasted several minutes, she was observed to be intermittently diaphoretic did not experience a headache. According to documentation there was an additional time when she was unable to move her left arm and left leg while in transit to the emergency room. Patient has been on Coumadin for atrial fibrillation she reports that recently she has had to go more frequently for INR is. Currently taking 5 mg daily had been on aspirin however after a gastric bypass and Mayra-en -Y she was experiencing ulcers and the aspirin was discontinued. Is never had a TIA or stroke. Patient and her daughter have a time share here in [place] and they are on vacation. Results - Labs Result diagrams: 01/14/18 10:20 01/14/18 10:20 Abnormal lab results 01/14/18 01/14/18 01/14/18 Range/Units 10:20 10:20 10:20 PT 22.1 H (9.8-11.6) sec APTT 39.4 H (24.3-30.1) sec POC Potassium 3.2 L (3.6-5.0) mmol/L Chloride 111 H (98-107) meq/L POC BUN 24 H (5-21) mg/dL BUN 23 H (7-18) mg/dL Estimated GFR 65 L (>89) mL/min POC Glucose 161 H (68-110) mg/dL Random Glucose 159 H (74-106) mg/dL AST 41 H (15-37) U/L Troponin I 0.21 H (0.02-0.05) ng/mL Albumin 3.3 L (3.4-5.0) g/dL 01/14/18 Range/Units 16:38 PT (9.8-11.6) sec APTT (24.3-30.1) sec POC Potassium (3.6-5.0) mmol/L Chloride (98-107) meq/L POC BUN (5-21) mg/dL BUN (7-18) mg/dL Estimated GFR (>89) mL/min POC Glucose (68-110) mg/dL Random Glucose (74-106) mg/dL AST (15-37) U/L Troponin I 0.09 H D (0.02-0.05) ng/mL Albumin (3.4-5.0) g/dL Short CBC 01/14/18 Range/Units 10:20 WBC 5.3 (4.0-11.0) th/mm3 Hgb 14.9 (11.6-15.3) gm/dL Hct 44.5 (35.0-46.0) % Plt Count 211 (150-450) th/mm3 BMP 01/14/18 10:20 Sodium 143 Potassium 3.5 Chloride 111 H Carbon Dioxide 23.8 BUN 23 H Creatinine 0.85 Calcium 8.7 Cardiac Enzymes 01/14/18 01/14/18 Range/Units 10:20 16:38 Total Creatine Kinase 72 (26-192) U/L Troponin I 0.21 H 0.09 H D (0.02-0.05) ng/mL Liver Function 01/14/18 Range/Units 10:20 Total Bilirubin 1.0 (0.2-1.0) mg/dL AST 41 H (15-37) U/L ALT 30 (10-53) U/L Alkaline Phosphatase 106 (45-117) U/L Albumin 3.3 L (3.4-5.0) g/dL - Imaging Impressions Carotid Doppler Study 01/14/18 00:00 CONCLUSION: 1. Right Internal Carotid Artery: Findings indicate <50% stenosis. 2. Left Internal Carotid Artery: Findings indicate <50% stenosis. Chest X-Ray 01/14/18 10:25 CONCLUSION: No acute cardiopulmonary disease. Head CT 01/14/18 10:25 CONCLUSION: 1. No acute intracranial findings. 2. Question right supraclinoid ICA aneurysm. CTA brain recommended which has been ordered Report was called by [Silas to Dr. Vera] at 1035 Physical Exam Vital signs: Vital Signs 01/14/18 10:25 01/14/18 10:38 01/14/18 10:39 Temperature 98.7 F Pulse Rate 43 L Respiratory Rate 18 Blood Pressure 123/79 Pulse Oximetry 98 100 100 01/14/18 10:58 01/14/18 13:00 01/14/18 13:04 Temperature 98.6 F 98.6 F Pulse Rate 69 68 Respiratory Rate 18 18 Blood Pressure 180/89 H 202/104 H Pulse Oximetry 96 100 01/14/18 15:00 01/14/18 16:00 01/14/18 17:00 Temperature 98 F 98.1 F Pulse Rate 59 L 80 68 Respiratory Rate 16 17 Blood Pressure 189/88 H 216/127 H Pulse Oximetry 96 97 Intake & Output 01/13/18 01/14/18 01/14/18 18:59 06:59 18:59 Weight 71.8 kg Narrative: Vital signs blood pressure has been quite labile 123/79-200 16/127. Pulse 80/ min respirations 18 temperature afebrile. General appearance older woman who is very pleasant in conversation, alert and oriented, no acute distress, reports no current neurologic symptoms. HEENT: Nonlocalizing. Neck: No bruits. Lungs: Clear to auscultation. Cardiac: S1-S2, no S3 or murmurs evident. Abdomen: Abdomen is soft, no organomegaly, no tenderness or masses. Extremities: feet are warm and dry, intact pedal pulses, superficial varicosities. Neurologic: Grossly nonlocalizing. Refer to resident history and physical for complete discussion of physical exam. Assessment and Plan - Assessment (1) Transient cerebral ischemia Code(s): G45.9 - Transient cerebral ischemic attack, unspecified Status: Acute Plan: On the day of admission had left-sided weakness that improved to baseline by the time patient was evaluated in the emergency room No history of stroke or TIA Patient does have A. fib with a known clot in the left atrial appendage. On warfarin with an INR of 2.2 CT head on admission showed no acute intracranial findings, did show questionable right supraclinoid ICA aneurysm EKG no ST changes Speech therapy consultedpassed swallow study Gave aspirin 325 mg p.o. once Continuous telemetry Echocardiogram pending CTA, MR brain pending Carotid ultrasound pending Neurology consulted Lipid panel, hemoglobin A1c in a.m. labs PT/OT (2) Elevated troponin Code(s): R74.8 - Abnormal levels of other serum enzymes Status: Acute Plan: Patient noted to have elevated troponin 0.21 on admission EKG with no ST elevations Will trend troponins and EKG for ACS rule out (3) Afib Code(s): I48.91 - Unspecified atrial fibrillation Status: Acute Plan: Known history of A. fib Well-controlled on Coreg 12.5 mg p.o. twice daily On warfarin 5 mg p.o. daily, INR 2.2 on admission On telemetry (4) Hypertension Code(s): I10 - Essential (primary) hypertension Status: Acute Plan: Known history of hypertension, treated only with carvedilol Pressure elevated at 202/104 on admission Ordering Vasotec IV as needed for systolic blood pressure over 180, diastolic blood pressure over 110 (5) Nutrition, metabolism, and development symptoms Code(s): R63.8 - Other symptoms and signs concerning food and fluid intake Status: Acute Plan: Passed swallow study, cardiac diet Normal saline IV fluids at 70 mL/h Replace electrolytes as needed Warfarin 5 mg daily - Assessment and Plan 72-year-old female with history of A. fib, hypertension hypothyroidism presented after a episode of left-sided weakness. Symptoms resolved on admission. Imaging to this point has been negative. Was noted to have elevated troponin of 0.21 on admission. Will admit to observation for TIA workup, ACS rule out. Neurology consulted. Disposition: Likely 1-2 days. Anticipate being discharged home pending PT/OT evaluation Assessment: Pleasant 72-year-old woman with a history of atrial fibrillation on chronic Coumadin therapy admitted after experiencing an episode consistent with a TIA lasting several minutes. Incidental note is made of a supraclinoid aneurysm which is being investigated with angiographic studies. Consider increasing Coumadin to an INR of 2.5-3, aspirin has been associated with ulcers status post gastric bypass and Mayra-en-Y, review with neurology. Discussed with resident team, agree with orders as written. Clifford Pierre MD . (1) Transient cerebral ischemia Qualifiers: Transient cerebral ischemia type: unspecified Qualified Code(s): G45.9 - Transient cerebral ischemic attack, unspecified
--- NOTE | 2018-01-14 19:28 | ECG ---
Date Performed: 01/14/2018 Time Performed: 11:04:16 PTAGE: 72 years EKG: ATRIAL FIBRILLATION WITH SLOW VENTRICULAR RESPONSE ANTEROSEPTAL MYOCARDIAL INFARCTION ABNOR MAL ECG NO PREVIOUS TRACING DOCTOR: Goldy Dhaliwal Interpretating Date/Time 01/14/2018 19:27:59
[2018-01-14 19:51] LABS: Chol/HDL Ratio 2.23 Ratio; HDL Cholesterol 56.4 mg/dL (40.0-60.0); Troponin I 0.08 ng/mL (0.02-0.05)
[2018-01-14] MEDS ORDERED: Atropine Inj 1 MG/ML Vial IV.PUSH PRN (20:47)
[2018-01-14] MEDS ORDERED: Carvedilol 12.5 MG Tablet PO SCH (21:00)
--- NOTE | 2018-01-14 23:29 | ECG ---
Date Performed: 01/14/2018 Time Performed: 20:39:54 PTAGE: 72 years EKG: Atrial fibrillation Possible anteroseptal infarct - age undetermined Inferior/lateral ST-T changes may be due to myocardial ischemia Abnormal ECG PREVIOUS TRACING : 01/14/2018 11.04 Since the previous tracing, no significant change noted DOCTOR: Goldy Dhaliwal Interpretating Date/Time 01/14/2018 23:28:34
[2018-01-15 04:33] LABS: Baso % (Auto) 0.4 % (0.0-2.0); Eos # (Auto) 0.1 th/mm3 (0.0-0.4); Eos % (Auto) 1.2 % (0.0-4.0); Hematocrit 45.3 % (35.0-46.0); Hemoglobin 15.4 gm/dL (11.6-15.3); Lymph # (Auto) 1.5 th/mm3 (1.0-4.8); Lymph % (Auto) 23.9 % (9.0-44.0); Mean Corpuscular HGB Conc 34.1 % (32.0-36.0); Mean Corpuscular Hemoglobin 31.2 pg (27.0-34.0); Mean Corpuscular Volume 91.6 fL (80.0-100.0); Mean Platelet Volume 8.3 fL (7.0-11.0); Mono # (Auto) 0.5 th/mm3 (0.0-0.9); Mono % (Auto) 7.3 % (0.0-8.0); Neut # (Auto) 4.4 th/mm3 (1.8-7.7); Neut % (Auto) 67.2 % (16.0-70.0); Platelet Count 211 th/mm3 (150-450); Red Blood Count 4.94 mil/mm3 (4.00-5.30); Red Cell Distribution Width 13.3 % (11.6-17.2); White Blood Count 6.5 th/mm3 (4.0-11.0)
[2018-01-15 04:51] LABS: Anion Gap 9 meq/L (5-15); Blood Urea Nitrogen 15 mg/dL (7-18); Calcium 8.7 mg/dL (8.5-10.1); Chloride 113 meq/L (98-107); Glomerular Filtration Rate Greater Than 89 mL/min (>89); Glucose,Random 92 mg/dL (74-106); Sodium 146 meq/L (136-145)
[2018-01-15] MEDS: Sod Chloride 0.9% Inj 1,000 ML IV.CONT SCH ×2 (05:28→08:24)
--- NOTE | 2018-01-15 08:38 | P.PNADD ---
Addendum to Inpatient Note Reason for Addendum: Additional Documentation Additional information: Resident team paged for at 20:00 for 1 hour of abnormal telemetry with "pauses" , asymptomatic. Pt is admitted for r/o TIA and does not have any residual symptoms. Pt seen and examined bedside, AAO x 3. Denies any CP/SOB/dizzyness. Vitals: HR 59, BP 150/90, Afebrile , RR 16 A/P: - Telemetry reviewed; afibb with very slow ventricular response, possible heart block - f/u with cardiology consult; pacemaker placement? - hold metoprolol, f/u with cardiology for BP management, Vasotec PRN - Amlodipine PRN HR <35 AND symptomatic - Pads placed, will connect if pt needs to be paced
--- NOTE | 2018-01-15 08:56 | P.PNNEU ---
Subjective Subjective Comments: slept well, no kincaid, no syncope, no vision loss, feels well. cardiology seeing pt Active Medications: Active Medications Atropine Sulfate (Atropine Inj) 0.5 mg IV.PUSH Q5M PRN PRN Reason: DIZZINESS Dextrose (D50w Vial) 50 ml IV.PUSH UNSCH PRN PRN Reason: per Hypoglycemic Protocol Enalaprilat (Vasotec Inj) 1.25 mg IV.PUSH Q6H PRN PRN Reason: SEE LABEL COMMENTS Last Admin: 01/14/18 17:33 Dose: 1.25 mg Glucagon (Glucagon Inj) 1 mg OTHER UNSCH PRN PRN Reason: per Hypoglycemic Protocol Sodium Chloride (Ns Inj) 1,000 mls @ 70 mls/hr IV.CONT .[id number] [facility] Last Infusion: 01/15/18 08:47 Dose: Infused Levothyroxine Sodium (Synthroid) 50 mcg PO DAILY@0600 [facility] Last Admin: 01/15/18 06:30 Dose: 50 mcg Pantoprazole Sodium (Protonix) 40 mg PO DAILY [facility] Last Admin: 01/15/18 08:43 Dose: 40 mg Pravastatin Sodium (Pravachol) 40 mg PO DAILY [facility] Last Admin: 01/15/18 08:44 Dose: 40 mg Sodium Chloride (Ns Flush) 2 ml IV.FLUSH PRN PRN PRN Reason: FLUSH AFTER USING IV ACCESS Last Admin: 01/15/18 08:45 Dose: 2 ml Warfarin Sodium (Coumadin) 5 mg PO DAILY [facility] Last Admin: 01/15/18 08:43 Dose: Not Given Allergies/Adverse Reactions: Allergies Allergy/AdvReac Type Severity Reaction Status Date / Time Penicillins Allergy Abdominal Verified 01/14/18 10:24 Pain Review of Systems All other systems reviewed negative except as stated in HPI Physical Exam Vital signs: Vital Signs 01/14/18 10:25 01/14/18 10:38 01/14/18 10:39 Temperature 98.7 F Pulse Rate 43 L Respiratory Rate 18 Blood Pressure 123/79 Pulse Oximetry 98 100 100 01/14/18 10:58 01/14/18 13:00 01/14/18 13:04 Temperature 98.6 F 98.6 F Pulse Rate 69 68 Respiratory Rate 18 18 Blood Pressure 180/89 H 202/104 H Pulse Oximetry 96 100 01/14/18 15:00 01/14/18 16:00 01/14/18 17:00 Temperature 98 F 98.1 F Pulse Rate 59 L 80 68 Respiratory Rate 16 17 Blood Pressure 189/88 H 216/127 H Pulse Oximetry 96 97 01/14/18 18:00 01/14/18 19:00 01/14/18 20:00 Temperature Pulse Rate 64 80 70 Respiratory Rate 18 Blood Pressure 198/84 H Pulse Oximetry 97 94 L 01/14/18 20:49 01/14/18 21:00 01/14/18 22:00 Temperature Pulse Rate 63 58 L 68 Respiratory Rate 16 Blood Pressure 177/83 H Pulse Oximetry 97 01/14/18 22:49 01/15/18 00:00 01/15/18 00:49 Temperature 97.5 F L Pulse Rate 70 62 67 Respiratory Rate 16 16 Blood Pressure 179/98 H 168/82 H Pulse Oximetry 01/15/18 01:00 01/15/18 02:00 01/15/18 02:49 Temperature 97.8 F Pulse Rate 66 68 69 Respiratory Rate 16 Blood Pressure 161/89 H Pulse Oximetry 01/15/18 03:00 01/15/18 04:00 01/15/18 04:49 Temperature Pulse Rate 70 80 69 Respiratory Rate 18 Blood Pressure 192/121 H Pulse Oximetry 01/15/18 05:00 01/15/18 06:00 01/15/18 06:49 Temperature 98.2 F Pulse Rate 71 59 L 72 Respiratory Rate 18 Blood Pressure 197/99 H Pulse Oximetry 01/15/18 08:00 Temperature Pulse Rate 62 Respiratory Rate Blood Pressure Pulse Oximetry 97 Intake & Output 01/14/18 01/15/18 01/15/18 18:59 06:59 18:59 Intake Total 240 / 240 240 / 240 900 / 900 Output Total 500 / 500 1250 / 1250 Balance -260 / -260 -1010 / -1010 900 / 900 Weight 71.8 kg 73 kg Intake: IV 900 / 900 NS Inj 1,000 ML @ 70 mls/hr IV. 900 / 900 CONT .[id number] CHELSIE Rx#:[id number] Oral 240 / 240 240 / 240 Output: Urine 500 / 500 1250 / 1250 Other: # Voids 1 Date of Last Bowel Movement 01/14/18 01/12/18 Narrative: GENERAL: NAD, looks well SKIN: Warm and dry. HEENT: Atraumatic. Normocephalic. Pupils equal and round. NECK: Trachea midline. No JVD. CARDIO: rrr RESP: No accessory muscle use. ABD: +BS, soft, non-tender, nondistended. EXT: Extremities without clubbing, cyanosis, or edema. No obvious deformities. NEURO: Awake and alert. Oriented 3. speech clear, follows, face sym, no focal weakness - Constitutional no acute distress - Routine HEENT Exam Head: Present: normocephalic Eye: Present: EOMI Objective Laboratory Results - last 24 hr 01/14/18 01/14/18 01/14/18 10:20 10:20 10:20 WBC 5.3 RBC 4.73 Hgb 14.9 POC Hgb (Calc) Hct 44.5 POC Hct MCV 94.1 MCH 31.5 MCHC 33.4 RDW 13.4 Plt Count 211 MPV 8.3 Neut % (Auto) 69.3 Lymph % (Auto) 21.6 [place] % (Auto) 6.9 Eos % (Auto) 1.7 Baso % (Auto) 0.5 Neut # (Auto) 3.6 Lymph # (Auto) 1.1 [place] # (Auto) 0.4 Eos # (Auto) 0.1 Baso # (Auto) 0.0 WBC Differential . Differential Comment Auto diff final ESR PT 22.1 H INR 2.2 APTT 39.4 H POC Sodium Sodium 143 POC Potassium Potassium 3.5 POC Chloride Chloride 111 H Carbon Dioxide 23.8 Anion Gap 8 POC BUN BUN 23 H Creatinine 0.85 POC Creatinine Estimated GFR 65 L POC Glucose Random Glucose 159 H Calcium 8.7 Total Bilirubin 1.0 AST 41 H ALT 30 Alkaline Phosphatase 106 Total Creatine Kinase 72 Troponin I 0.21 H Total Protein 7.0 Albumin 3.3 L Triglycerides Cholesterol LDL Cholesterol, Calc HDL Cholesterol Cholesterol/HDL Ratio Vitamin B12 Blood Type Blood Type Recheck Antibody Screen 01/14/18 01/14/18 01/14/18 10:20 11:17 16:38 WBC RBC Hgb POC Hgb (Calc) 14.6 Hct POC Hct 43.0 MCV MCH MCHC RDW Plt Count MPV Neut % (Auto) Lymph % (Auto) [place] % (Auto) Eos % (Auto) Baso % (Auto) Neut # (Auto) Lymph # (Auto) [place] # (Auto) Eos # (Auto) Baso # (Auto) WBC Differential Differential Comment ESR PT INR APTT POC Sodium 143 Sodium POC Potassium 3.2 L Potassium POC Chloride 109 Chloride Carbon Dioxide Anion Gap POC BUN 24 H BUN Creatinine POC Creatinine 0.6 Estimated GFR POC Glucose 161 H Random Glucose Calcium Total Bilirubin AST ALT Alkaline Phosphatase Total Creatine Kinase Troponin I 0.09 H D Total Protein Albumin Triglycerides Cholesterol LDL Cholesterol, Calc HDL Cholesterol Cholesterol/HDL Ratio Vitamin B12 Blood Type O Positive Blood Type Recheck Required Antibody Screen Negative 01/14/18 01/14/18 01/14/18 17:23 18:30 18:30 WBC RBC Hgb POC Hgb (Calc) Hct POC Hct MCV MCH MCHC RDW Plt Count MPV Neut % (Auto) Lymph % (Auto) [place] % (Auto) Eos % (Auto) Baso % (Auto) Neut # (Auto) Lymph # (Auto) [place] # (Auto) Eos # (Auto) Baso # (Auto) WBC Differential Differential Comment ESR 5 PT INR APTT POC Sodium Sodium POC Potassium Potassium POC Chloride Chloride Carbon Dioxide Anion Gap POC BUN BUN Creatinine POC Creatinine Estimated GFR POC Glucose 91 Random Glucose Calcium Total Bilirubin AST ALT Alkaline Phosphatase Total Creatine Kinase Troponin I 0.08 H Total Protein Albumin Triglycerides 86 Cholesterol 126 LDL Cholesterol, Calc 52 HDL Cholesterol 56.4 Cholesterol/HDL Ratio 2.23 Vitamin B12 1565 H Blood Type Blood Type Recheck Antibody Screen 01/14/18 01/15/18 01/15/18 23:24 04:01 04:01 WBC 6.5 RBC 4.94 Hgb 15.4 H POC Hgb (Calc) Hct 45.3 POC Hct MCV 91.6 MCH 31.2 MCHC 34.1 RDW 13.3 Plt Count 211 MPV 8.3 Neut % (Auto) 67.2 Lymph % (Auto) 23.9 [place] % (Auto) 7.3 Eos % (Auto) 1.2 Baso % (Auto) 0.4 Neut # (Auto) 4.4 Lymph # (Auto) 1.5 [place] # (Auto) 0.5 Eos # (Auto) 0.1 Baso # (Auto) 0.0 WBC Differential . Differential Comment Auto diff final ESR PT INR APTT POC Sodium Sodium 146 H POC Potassium Potassium 3.0 L POC Chloride Chloride 113 H Carbon Dioxide 24.0 Anion Gap 9 POC BUN BUN 15 Creatinine 0.57 POC Creatinine Estimated GFR Greater than 89 POC Glucose 87 Random Glucose 92 Calcium 8.7 Total Bilirubin AST ALT Alkaline Phosphatase Total Creatine Kinase Troponin I Total Protein Albumin Triglycerides Cholesterol LDL Cholesterol, Calc HDL Cholesterol Cholesterol/HDL Ratio Vitamin B12 Blood Type Blood Type Recheck Antibody Screen 01/15/18 08:42 WBC RBC Hgb POC Hgb (Calc) Hct POC Hct MCV MCH MCHC RDW Plt Count MPV Neut % (Auto) Lymph % (Auto) [place] % (Auto) Eos % (Auto) Baso % (Auto) Neut # (Auto) Lymph # (Auto) [place] # (Auto) Eos # (Auto) Baso # (Auto) WBC Differential Differential Comment ESR PT INR APTT POC Sodium Sodium POC Potassium Potassium POC Chloride Chloride Carbon Dioxide Anion Gap POC BUN BUN Creatinine POC Creatinine Estimated GFR POC Glucose 180 H Random Glucose Calcium Total Bilirubin AST ALT Alkaline Phosphatase Total Creatine Kinase Troponin I Total Protein Albumin Triglycerides Cholesterol LDL Cholesterol, Calc HDL Cholesterol Cholesterol/HDL Ratio Vitamin B12 Blood Type Blood Type Recheck Antibody Screen Review/Management - Diagnosis (1) Acute embolic stroke Code(s): I63.9 - Cerebral infarction, unspecified Status: Acute Current Visit: Yes (2) Transient cerebral ischemia Code(s): G45.9 - Transient cerebral ischemic attack, unspecified Status: Acute Current Visit: Yes (3) Non-ST elevated myocardial infarction (non-STEMI) Code(s): I21.4 - Non-ST elevation (NSTEMI) myocardial infarction Status: Acute Current Visit: Yes (4) Hypertension Code(s): I10 - Essential (primary) hypertension Status: Acute Current Visit : Yes (5) Afib Code(s): I48.91 - Unspecified atrial fibrillation Status: Acute Current Visit: Yes - Review/Management Plan: appears to be 2/2 embolic strokes INR was therapeutic at 2.2 Recommendations mri brain images reviewed: appears to have tiny l>rt high cortical embolic infarcts. mra brain appears to show some would consider increasing target inr to 2.5-2.7 vs changing to novel OAC such as pradaxa. defer to cardiology/medical lipid panel excellent ?[facility] per cardiology p.t. d/c planning after above follow exam (2) Transient cerebral ischemia Qualifiers: Transient cerebral ischemia type: unspecified Qualified Code(s): G45.9 - Transient cerebral ischemic attack, unspecified
[2018-01-15] MEDS ORDERED: IRON PO SCH (09:00)
[2018-01-15] MEDS ORDERED: amLODIPine 10 MG Tablet PO SCH (09:00)
--- NOTE | 2018-01-15 09:34 | MB ---
cc: Erick Mathews MD DATE: 01/15/2018 REASON FOR CONSULTATION: Bradycardia, dizziness, and abnormal troponin levels. HISTORY OF PRESENT ILLNESS: The patient is a 72-year-old white female, visiting here from [place], with a history of chronic atrial fibrillation, hypertension, and hyperlipidemia, who was brought to the hospital by her daughter due to acute neurological symptoms. The patient states she was at the breakfast table when she suddenly became lightheaded. She tried to stand up, but felt as if her legs would give out on her. She apparently fell into her daughter's arms, but believes she never lost consciousness. In the hospital, she was mildly bradycardic on presentation. The patient states her atrial fibrillation dates back several years. The patient denies palpitations, pedal edema, chest pain, shortness of breath, or paroxysmal nocturnal dyspnea. In the last 2 weeks, she has noted intermittent, usually brief, mild lightheadedness. Her oral intake has been normal. PAST MEDICAL HISTORY: 1. Chronic atrial fibrillation. 2. Hypertension. 3. Hyperlipidemia. PAST SURGICAL HISTORY: 1. Gastric bypass. 2. Bilateral knee replacements. 3. Bilateral carpal tunnel release. CARDIAC MEDICATIONS AT HOME: 1. Warfarin 5 mg daily. 2. Pravastatin 40 mg at bedtime. 3. Carvedilol 12.5 mg b.i.d. ALLERGIES: PENICILLIN. FAMILY HISTORY: Noncontributory. There is no significant family history of early myocardial infarction. SOCIAL HISTORY: The patient denies alcohol or tobacco abuse. REVIEW OF SYSTEMS: As in the history of present illness, otherwise negative or noncontributory. She also denies abdominal pain, melena, dyspepsia, or bright red blood per rectum. PHYSICAL EXAMINATION: VITAL SIGNS: Her blood pressure 197/99 with a pulse of 62, respirations 18. GENERAL: She is a well-developed, well-nourished white female, in no acute distress. NECK: Jugular venous pressure is normal. Carotid pulses are 2+ bilaterally and without bruits. CHEST: Reveals clear lungs rahman. CARDIAC: She has an irregularly irregular rhythm without S3 or murmur. ABDOMEN: She has a soft, nontender abdomen. Bowel sounds are present. There is no definite hepatosplenomegaly. EXTREMITIES: Reveal no clubbing, cyanosis, or edema. LABORATORY DATA: Includes normal CBC. Potassium 3.0, BUN 15, creatinine 0.57, total cholesterol 126, LDL 52, HDL 56, triglycerides 86, troponin 0.21. EKG from 01/14/2018 at 8:39 p.m. shows atrial fibrillation, nonspecific interventricular conduction delay, diffuse nonspecific ST and T-wave modalities. Chest x-ray shows no acute disease. IMPRESSION: Dizziness, slightly abnormal levels, and transient mild bradycardia in this 72-year-old white female with a history of chronic atrial fibrillation, hypertension, and hyperlipidemia, now admitted with possible transient ischemic attack, as well as elevated blood pressures. I suspect her episode of dizziness yesterday was in part vasovagal mediated. Her bradycardia may be somewhat exacerbated by her carvedilol, which she takes at home chronically. Overall, I doubt the slightly abnormal troponin levels are due to acute coronary syndrome. CK is negative for myocardial infarction. The patient has had no angina-like symptoms. There is no evidence for congestive heart failure. Her thromboembolic risk with the atrial fibrillation is moderately elevated. RECOMMENDATIONS: 1. Overall, would favor continuing carvedilol, though at a reduced dose of 3.125 mg b.i.d. and adding amlodipine or an BOBBI inhibitor for better blood pressure control. 2. Check a 2-D echo to assess her left ventricular function. If her echocardiogram is unremarkable, she can be discharged home later today from a cardiac standpoint. 3. Consider change warfarin to Eliquis or Pradaxa. MD TIM Reddy/bs , 08:48 AM , 08:57 AM JULIAN
--- NOTE | 2018-01-15 10:13 | MR ---
EXAM DATE: 01/15/2018 8:24 AM EDT AGE/SEX: 72 years / Female INDICATIONS: CVA. Weakness. Vertigo. CLINICAL DATA: This is the patient's initial encounter. Patient reports that signs and symptoms have been present for 2 days and indicates a pain score of 0/10. MEDICAL/SURGICAL HISTORY: Hypertension. Renal ca. Cholecystectomy. Tubal ligation. Gastric b ypass. Kidney resection due to ca. COMPARISON: [facility] – [place], [place] HEAD W/O CONTRAST, 01/15/2018. . TECHNIQUE: 3D [id number] MRA was performed. Source images, multiplanar STS MIP, and 3D volum e MIP reconstructions were reviewed. 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 Slightly more distal, the medial aspect of the internal carotid artery in the region of the anterior clinoid is notable for a slightly more saccular small aneurysm protruding medially and slightly post eriorly, potentially arising in the region of a hypophyseal branch vessel, just proximal to the origi n of the superior ophthalmic artery. This aneurysm measures minimally greater than 3 mm. The [place] vessels are intact and unremarkable with no evidence of major vessel occlusion o r stenosis. No vascular malformation is identified. 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 Periodic imaging follow-up suggested to document stability with repeat MRA in 6 months initially marichuy kim Electronically signed by: Dalton Rosen MD 01/15/2018 10:11 AM EDT
[2018-01-15 10:25] LABS: INR 2.8 Ratio; Prothrombin Time 28.4 sec (9.8-11.6)
--- NOTE | 2018-01-15 11:16 | P.PNFP ---
Subjective Interval history: Resident team was paged overnight as patient's telemetry showed intermittent "pauses." Patient was asymptomatic at that time but telemetry reviewed show A. fib with very slow ventricular response and possible heart block. Cardiology was consulted and is made adjustment in her home medications. Patient continues to be asymptomatic, denying chest pain/shortness of breath/dizziness/ headache or lightheadedness. Patient states that her and her family were visiting from [place] were hoping to return home on Saturday or Saturday. <Fadi Garcia B - 01/15/18 11:55> Results - Labs Result diagrams: 01/15/18 04:01 01/15/18 04:01 <Clifford Pierre E - 01/15/18 13:47> Abnormal lab results 01/14/18 01/14/18 01/15/18 Range/Units 16:38 18:30 04:01 Hgb 15.4 H (11.6-15.3) gm/dL PT (9.8-11.6) sec Sodium (136-145) meq/L Potassium (3.5-5.1) meq/L Chloride (98-107) meq/L POC Glucose (68-110) mg/dl Troponin I 0.09 H D 0.08 H (0.02-0.05) ng/mL Vitamin B12 1565 H (193-986) pg/mL 01/15/18 01/15/18 01/15/18 Range/Units 04:01 08:42 09:44 Hgb (11.6-15.3) gm/dL PT 28.4 H (9.8-11.6) sec Sodium 146 H (136-145) meq/L Potassium 3.0 L (3.5-5.1) meq/L Chloride 113 H (98-107) meq/L POC Glucose 180 H (68-110) mg/dl Troponin I (0.02-0.05) ng/mL Vitamin B12 (193-986) pg/mL Short CBC 01/15/18 Range/Units 04:01 WBC 6.5 (4.0-11.0) th/mm3 Hgb 15.4 H (11.6-15.3) gm/dL Hct 45.3 (35.0-46.0) % Plt Count 211 (150-450) th/mm3 BMP 01/15/18 04:01 Sodium 146 H Potassium 3.0 L Chloride 113 H Carbon Dioxide 24.0 BUN 15 Creatinine 0.57 Calcium 8.7 Cardiac Enzymes 01/14/18 01/14/18 Range/Units 16:38 18:30 Troponin I 0.09 H D 0.08 H (0.02-0.05) ng/mL <Clifford Pierre E - 01/15/18 13:47> Abnormal lab results 01/14/18 01/14/18 01/15/18 Range/Units 16:38 18:30 04:01 Hgb 15.4 H (11.6-15.3) gm/dL PT (9.8-11.6) sec Sodium (136-145) meq/L Potassium (3.5-5.1) meq/L Chloride (98-107) meq/L POC Glucose (68-110) mg/dl Troponin I 0.09 H D 0.08 H (0.02-0.05) ng/mL Vitamin B12 1565 H (193-986) pg/mL 01/15/18 01/15/18 01/15/18 Range/Units 04:01 08:42 09:44 Hgb (11.6-15.3) gm/dL PT 28.4 H (9.8-11.6) sec Sodium 146 H (136-145) meq/L Potassium 3.0 L (3.5-5.1) meq/L Chloride 113 H (98-107) meq/L POC Glucose 180 H (68-110) mg/dl Troponin I (0.02-0.05) ng/mL Vitamin B12 (193-986) pg/mL Short CBC 01/15/18 Range/Units 04:01 WBC 6.5 (4.0-11.0) th/mm3 Hgb 15.4 H (11.6-15.3) gm/dL Hct 45.3 (35.0-46.0) % Plt Count 211 (150-450) th/mm3 BMP 01/15/18 04:01 Sodium 146 H Potassium 3.0 L Chloride 113 H Carbon Dioxide 24.0 BUN 15 Creatinine 0.57 Calcium 8.7 Cardiac Enzymes 01/14/18 01/14/18 Range/Units 16:38 18:30 Troponin I 0.09 H D 0.08 H (0.02-0.05) ng/mL <Fadi Garcia - 01/15/18 11:16> - Imaging Impressions Carotid Doppler Study 01/14/18 00:00 CONCLUSION: 1. Right Internal Carotid Artery: Findings indicate <50% stenosis. 2. Left Internal Carotid Artery: Findings indicate <50% stenosis. Head MRI 01/15/18 00:00 CONCLUSION: 1. Small foci of acute infarction at the posterior superior left parietal lobe. 2. Increased signal in the periventricular white matter likely from small vessel stomach change. 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 Periodic imaging follow-up suggested to document stability with repeat MRA in 6 months initially suggested <Clifford Pierre - 01/15/18 13:47> Impressions Carotid Doppler Study 01/14/18 00:00 CONCLUSION: 1. Right Internal Carotid Artery: Findings indicate <50% stenosis. 2. Left Internal Carotid Artery: Findings indicate <50% stenosis. 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 Periodic imaging follow-up suggested to document stability with repeat MRA in 6 months initially suggested <Fadi Garcia - 01/15/18 11:16> Physical Exam Vital signs: Vital Signs 01/14/18 15:00 01/14/18 16:00 01/14/18 17:00 Temperature 98 F 98.1 F Pulse Rate 59 L 80 68 Respiratory Rate 16 17 Blood Pressure 189/88 H 216/127 H Pulse Oximetry 96 97 01/14/18 18:00 01/14/18 19:00 01/14/18 20:00 Temperature Pulse Rate 64 80 70 Respiratory Rate 18 Blood Pressure 198/84 H Pulse Oximetry 97 94 L 01/14/18 20:49 01/14/18 21:00 01/14/18 22:00 Temperature Pulse Rate 63 58 L 68 Respiratory Rate 16 Blood Pressure 177/83 H Pulse Oximetry 97 01/14/18 22:49 01/15/18 00:00 01/15/18 00:49 Temperature 97.5 F L Pulse Rate 70 62 67 Respiratory Rate 16 16 Blood Pressure 179/98 H 168/82 H Pulse Oximetry 01/15/18 01:00 01/15/18 02:00 01/15/18 02:49 Temperature 97.8 F Pulse Rate 66 68 69 Respiratory Rate 16 Blood Pressure 161/89 H Pulse Oximetry 01/15/18 03:00 01/15/18 04:00 01/15/18 04:49 Temperature Pulse Rate 70 80 69 Respiratory Rate 18 Blood Pressure 192/121 H Pulse Oximetry 01/15/18 05:00 01/15/18 06:00 01/15/18 06:49 Temperature 98.2 F Pulse Rate 71 59 L 72 Respiratory Rate 18 Blood Pressure 197/99 H Pulse Oximetry 01/15/18 08:00 01/15/18 09:00 01/15/18 10:00 Temperature Pulse Rate 62 81 58 L Respiratory Rate Blood Pressure Pulse Oximetry 97 01/15/18 10:03 01/15/18 11:00 01/15/18 12:00 Temperature 97.3 F L Pulse Rate 73 79 Respiratory Rate 17 Blood Pressure 139/94 H 135/79 Pulse Oximetry 01/15/18 12:56 Temperature Pulse Rate 77 Respiratory Rate Blood Pressure Pulse Oximetry Intake & Output 01/14/18 01/15/18 01/15/18 18:59 06:59 18:59 Intake Total 240 / 240 240 / 240 900 / 900 Output Total 500 / 500 1250 / 1250 Balance -260 / -260 -1010 / -1010 900 / 900 Weight 71.8 kg 73 kg Intake: IV 0 / 0 900 / 900 NS Inj 1,000 ML @ 70 mls/hr IV. 0 / 0 900 / 900 CONT .[id number] [facility] Rx#:[id number] Oral 240 / 240 240 / 240 Output: Urine 500 / 500 1250 / 1250 Other: # Voids 1 Date of Last Bowel Movement 01/14/18 01/12/18 <Clifford Pierre - 01/15/18 13:47> Vital Signs 01/14/18 13:00 01/14/18 13:04 01/14/18 15:00 Temperature 98.6 F 98 F Pulse Rate 68 59 L Respiratory Rate 18 16 Blood Pressure 202/104 H 189/88 H Pulse Oximetry 100 96 01/14/18 16:00 01/14/18 17:00 01/14/18 18:00 Temperature 98.1 F Pulse Rate 80 68 64 Respiratory Rate 17 18 Blood Pressure 216/127 H 198/84 H Pulse Oximetry 97 97 01/14/18 19:00 01/14/18 20:00 01/14/18 20:49 Temperature Pulse Rate 80 70 63 Respiratory Rate 16 Blood Pressure 177/83 H Pulse Oximetry 94 L 97 01/14/18 21:00 01/14/18 22:00 01/14/18 22:49 Temperature 97.5 F L Pulse Rate 58 L 68 70 Respiratory Rate 16 Blood Pressure 179/98 H Pulse Oximetry 01/15/18 00:00 01/15/18 00:49 01/15/18 01:00 Temperature Pulse Rate 62 67 66 Respiratory Rate 16 Blood Pressure 168/82 H Pulse Oximetry 01/15/18 02:00 01/15/18 02:49 01/15/18 03:00 Temperature 97.8 F Pulse Rate 68 69 70 Respiratory Rate 16 Blood Pressure 161/89 H Pulse Oximetry 01/15/18 04:00 01/15/18 04:49 01/15/18 05:00 Temperature Pulse Rate 80 69 71 Respiratory Rate 18 Blood Pressure 192/121 H Pulse Oximetry 01/15/18 06:00 01/15/18 06:49 01/15/18 08:00 Temperature 98.2 F Pulse Rate 59 L 72 62 Respiratory Rate 18 Blood Pressure 197/99 H Pulse Oximetry 97 01/15/18 09:00 01/15/18 10:00 01/15/18 10:03 Temperature Pulse Rate 81 58 L Respiratory Rate Blood Pressure 139/94 H Pulse Oximetry Intake & Output 01/14/18 01/15/18 01/15/18 18:59 06:59 18:59 Intake Total 240 / 240 240 / 240 900 / 900 Output Total 500 / 500 1250 / 1250 Balance -260 / -260 -1010 / -1010 900 / 900 Weight 71.8 kg 73 kg Intake: IV 0 / 0 900 / 900 NS Inj 1,000 ML @ 70 mls/hr IV. 0 / 0 900 / 900 CONT .[id number] [facility] Rx#:[id number] Oral 240 / 240 240 / 240 Output: Urine 500 / 500 1250 / 1250 Other: # Voids 1 Date of Last Bowel Movement 01/14/18 01/12/18 <GarciaFadi Manpreet - 01/15/18 11:16> Narrative: GENERAL: Well-nourished, well-developed patient lying down in bed in no acute distress. SKIN: Warm and dry. No rash. EYES: No scleral icterus. No injection or drainage. PERRLA. EOMI. HENT: Normocephalic. Atraumatic. MMM. NECK: No visible JVD or lymphadenopathy. CARDIOVASCULAR: Warm and well perfused. Irregular rate (in the 60s-70s) and rhythm with no murmurs appreciated RESPIRATORY: Normal respiratory effort. Clear to auscultation bilaterally GASTROINTESTINAL: Abdomen nondistended, soft and nontender. MUSCULOSKELETAL: Strength grossly WNL. BACK: Without obvious deformity. NEURO/PSYCH: Afocal. Awake, alert, and oriented x3. <Fadi Garcia - 01/15/18 11:55> Assessment and Plan - Assessment (1) Transient cerebral ischemia Code(s): G45.9 - Transient cerebral ischemic attack, unspecified Status: Acute (2) Bradycardia Code(s): R00.1 - Bradycardia, unspecified Status: Acute (3) Elevated troponin Code(s): R74.8 - Abnormal levels of other serum enzymes Status: Acute (4) Afib Code(s): I48.91 - Unspecified atrial fibrillation Status: Acute (5) Hypertension Code(s): I10 - Essential (primary) hypertension Status: Acute (6) Nutrition, metabolism, and development symptoms Code(s): R63.8 - Other symptoms and signs concerning food and fluid intake Status: Acute <Clifford Pierre - 01/15/18 13:47> (1) Transient cerebral ischemia Code(s): G45.9 - Transient cerebral ischemic attack, unspecified Status: Acute Plan: On the day of admission had left-sided weakness that improved to baseline by the time patient was evaluated in the emergency room No history of stroke or TIA Patient does have A. fib with a known clot in the left atrial appendage. 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 Recommended repeat MRI in 6 months Official read on MR brain pending, however discussion with radiologist revealed several small areas of possible ischemia on the left side, likely indicative of embolic origin Carotid ultrasound on admission showed mild atherosclerotic plaque within the common carotid and moderate calcified and noncalcified plaque in the right bulb , similar findings in the left carotid artery Neurology consulted, recommending EEG and a target INR of 2.5-2.7 versus changing to a novel LAC. (2) Bradycardia Code(s): R00.1 - Bradycardia, unspecified Status: Acute Plan: Overnight telemetry showed A. fib with very slow ventricular response and possible heart block. Asymptomatic at that time Cardiology was consulted Decreased Coreg dose, added amlodipine for blood pressure Will continue to monitor on telemetry (3) Elevated troponin Code(s): R74.8 - Abnormal levels of other serum enzymes Status: Acute Plan: Patient noted to have elevated troponin 0.21 on admission EKG with no ST elevations Troponin is down trended and EKGs continue to show no ST elevations (4) Afib Code(s): I48.91 - Unspecified atrial fibrillation Status: Acute Plan: Known history of A. fib Cardiology recommended decreasing Coreg to 3.125 mg p.o. twice daily On warfarin 5 mg p.o. daily, INR 2.2 on admission, see workup as above On telemetry (5) Hypertension Code(s): I10 - Essential (primary) hypertension Status: Acute Plan: Known history of hypertension, treated only with carvedilol Continue to have elevated pressures overnight Cardiology adding Norvasc 2 mg p.o. daily Vasotec IV as needed for systolic blood pressure over 180, diastolic blood pressure over 110 (6) Nutrition, metabolism, and development symptoms Code(s): R63.8 - Other symptoms and signs concerning food and fluid intake Status: Acute Plan: Passed swallow study, cardiac diet Discontinuing IV fluids today Replace electrolytes as needed Warfarin 5 mg daily, will likely transition to a OAC <Fadi Garcia - 01/15/18 11:38> - Assessment and Plan Attending note: 01/15/2018. Patient seen and evaluated with the resident team. Agree with resident team evaluation and orders as recorded. Clifford Pierre MD <Clifford Pierre - 01/15/18 13:47> 72-year-old female with history of A. fib, hypertension hypothyroidism presented after a episode of left-sided weakness. Symptoms resolved on admission. Patient was noted to have elevated troponin on admission, ACS was ruled out as troponins down trended and EKGs showed no ST changes. Initial imaging was negative for hemorrhage/stroke, but MRI showed small likely embolic areas of infarct on the left. Patient also developed symptomatic bradycardia on the night of admission with telemetry showing A. fib with slow ventricular response of possible heart block. Cardiology was consulted and decreased the Coreg dose. Recommended switching from warfarin to Pradaxa in light of this. Echocardiogram still pending Disposition: Likely 1-2 days. Anticipate being discharged home pending PT/OT evaluation as well as further cardiac workup Assessment: Pleasant 72-year-old woman with a history of atrial fibrillation on chronic Coumadin therapy admitted after experiencing an episode consistent with a TIA lasting several minutes. Incidental note is made of a supraclinoid aneurysm which is being investigated with angiographic studies. Consider increasing Coumadin to an INR of 2.5-3, aspirin has been associated with ulcers status post gastric bypass and [id number]-Y, review with neurology. Discussed with resident team, agree with orders as written. Clifford Pierre MD . <Fadi Garcia B - 01/15/18 11:55> <Fadi Garcia - Last Filed: 01/15/18 11:38> (1) Transient cerebral ischemia Qualifiers: Transient cerebral ischemia type: unspecified Qualified Code(s): G45.9 - Transient cerebral ischemic attack, unspecified <Pierre,Clifford E - Last Filed: 01/15/18 13:47> (1) Transient cerebral ischemia Qualifiers: Transient cerebral ischemia type: unspecified Qualified Code(s): G45.9 - Transient cerebral ischemic attack, unspecified <Fadi Garcia B - Last Filed: 01/15/18 11:38> (1) Transient cerebral ischemia Qualifiers: Transient cerebral ischemia type: unspecified Qualified Code(s): G45.9 - Transient cerebral ischemic attack, unspecified <Clifford Pierre E - Last Filed: 01/15/18 13:47> (1) Transient cerebral ischemia Qualifiers: Transient cerebral ischemia type: unspecified Qualified Code(s): G45.9 - Transient cerebral ischemic attack, unspecified
--- NOTE | 2018-01-15 12:04 | ECHRPT ---
Indication: CVA/TIA CARDIOMYOPATHY CONCLUSIONS Normal left ventricular size. Mild concentric left ventricular hypertrophy. The left ventricular systolic function is normal with an estimated ejection fraction in the range of 55-60%. Normal wall motion. The left atrial size is mildly dilated. Mild to moderate mitral annular calcification is present. Trace mitral valve regurgitation. Mild aortic valve sclerosis is present. Trace aortic valve regurgitation. There is trace tricuspid valve regurgitation. The estimated pulmonary arterial pressure is 17 mmHg. BP: / HR: Rhythm: MEASUREMENTS (Male / Female) Normal Values Technical Quality: 2D ECHO LV Diastolic Diameter PLAX 4.3 cm 4.2 - 5.9 / 3.9 - 5.3 cm LV Systolic Diameter PLAX 3.1 cm IVS Diastolic Thickness 1.1 cm 0.6 - 1.0 / 0.6 - 0.9 cm LVPW Diastolic Thickness 1.0 cm 0.6 - 1.0 / 0.6 - 0.9 cm LV Relative Wall Thickness 0.5 RV Internal Dim ED PLAX 2.0 cm LA Systolic Diameter LX 3.6 cm 3.0 - 4.0 / 2.7 - 3.8 cm M-MODE AV Cusp Separation MM 1.8 cm DOPPLER AV Peak Velocity 164.3 cm/s AV Peak Gradient 10.8 mmHg AV Mean Gradient 7.0 mmHg AV Velocity Time Integral 30.4 cm LVOT Peak Velocity 71.3 cm/s LVOT Peak Gradient 2.0 mmHg Mitral E Point Velocity 79.5 cm/s TR Peak Velocity 133.0 cm/s TR Peak Gradient 7.1 mmHg Right Atrial Pressure 10.0 mmHg Pulmonary Artery Systolic Pressu 17.1 mmHg Right Ventricular Systolic Press 17.1 mmHg FINDINGS LEFT VENTRICLE Normal left ventricular size. Mild concentric left ventricular hypertrophy. The left ventricular systolic function is normal with an estimated ejection fraction in the range of 55-60%. Normal wall motion. RIGHT VENTRICLE Normal right ventricular size and systolic function. LEFT ATRIUM The left atrial size is mildly dilated. RIGHT ATRIUM The right atrial size is upper normal. ATRIAL SEPTUM Normal atrial septal thickness without atrial level shunting by limited color doppler interrogation. AORTA The aortic root and proximal ascending aorta are normal in size on limited imaging. MITRAL VALVE Mild to moderate mitral annular calcification is present. Trace mitral valve regurgitation. AORTIC VALVE Mild aortic valve sclerosis is present. Trace aortic valve regurgitation. TRICUSPID VALVE There is trace tricuspid valve regurgitation. The estimated pulmonary arterial pressure is 17 mmHg. PULMONARY VALVE No pulmonary valve regurgitation or stenosis. VESSELS The inferior vena cava is normal in size. PERICARDIUM No pericardial effusion. Erick Mathews MD (Electronically Signed) Final Date:15 January 2018 12:03
--- NOTE | 2018-01-15 13:02 | MR ---
EXAM DATE: 01/15/2018 8:29 AM EDT AGE/SEX: 72 years / Female INDICATIONS: Dizziness. Weakness. Stroke. CLINICAL DATA: This is the patient's initial encounter. Patient reports that signs and symptoms have been present for 2 days and indicates a pain score of 0/10. MEDICAL/SURGICAL HISTORY: Hypertension. renal cancer Carpal tunnel syndrome. Total knee repla cement, right. Total knee replacement, left. cholecystectomy, gastric bypass COMPARISON: No prior exams available for comparison. TECHNIQUE: Multiplanar, multisequence examination of the brain was performed without contrast. FINDINGS: Cerebrum: The ventricles are normal for age. There are small focal areas of signal abnormality on t he diffusion-weighted images seen at the left posterior superior parietal lobe. No evidence of midlin e shift, mass lesion, hemorrhage. No extraaxial fluid collections are seen. The pituitary gland and suprasellar cistern are normal in configuration. White Matter: There is increased signal within the periventricular white matter. Posterior Fossa: The cerebellum and brainstem are intact. The 4th ventricle is midline. The cerebel lopontine angle is unremarkable. The cerebellar tonsils are normal in position. Diffusion Imaging: There are small foci of increased signal at the cortex at the posterior superior left parietal lobe. Extracranial: The visualized portions of the orbits and paranasal sinuses are unremarkable. CONCLUSION: 1. Small foci of acute infarction at the posterior superior left parietal lobe. 2. Increased signal in the periventricular white matter likely from small vessel stomach change. Electronically signed by: Dalton Karimi MD 01/15/2018 1:01 PM EDT
[2018-01-15 15:33] LABS: Hemoglobin A1c 5.4 % (4.3-6.0)
--- NOTE | 2018-01-15 22:23 | MG ---
cc: Ben Kim MD ELECTROENCEPHALOGRAM RECORD NUMBER: [id number] DESCRIPTION: An 8-10 Hz alpha activity, 20-50 microvolts, low-amplitude beta in the frontal channels. Good anterior to posterior gradient. Followed by generalized slowing with transition into drowsy followed by stage I and stage II sleep characterized by K complexes and spindle activity. Good arousals during good background. Reasonably good driving with photic stimulation. Single lead EKG showing irregularly irregular rhythm. INTERPRETATION: Normal awake sleep electroencephalogram. Clinical correlation. MD HYUN Salguero/brandee/elli , 08:45 PM , 08:48 PM
== END 2018-01-15 15:50 | disposition home or self-care (01) ==
LOC: NEPC 10:19 → NEDA 10:19 → HCPC 10:19
PROVIDERS: ADMIT Family Medicine; ATTEND Family Medicine